=== PATIENT | female | born 1955 | race Caucasian/White ===

== ENCOUNTER 2020-12-09 06:54 | Outpatient (REF) | payer MEDICARE, SELFPAY ==
[2020-12-09 07:30] LABS: MANUAL DIFF FLAG NO
[2020-12-09 07:53] LABS: Glucose Urine UA NEG (NEG); Leukocyte Esterase Urine NEG (NEG); Nitrite Urine NEG (NEG); Urine Blood TRACE (NEG); Urine Ketones NEG (NEG); Urine Protein NEG (NEG-TRACE)
[2020-12-09 07:54] LABS: Appearance Urine CLEAR; Color Urine YELLOW
[2020-12-09 07:56] LABS: Mucus Urine 1+ /LPF; RBC Urine 0-2 /HPF (0); Renal Epithelial Cells Urine 1+ /LPF; Squamous Epithelial Cell Urine 1+ /LPF; WBC Urine 0-2 /HPF (0-4)
[2020-12-09 07:56] LABS: Basophils Absolute Auto 0.1 X10*3/uL (0.0-0.2); Basophils Percent Auto 1.2 % (0-2); Eosinophils Absolute Auto 0.1 X10*3/uL (0.0-0.4); Eosinophils Percent Auto 1.6 % (0-4); Hematocrit 43.6 % (37-47); Hemoglobin 14.4 g/dl (12.0-16.0); Imm Gran Abs Auto 0.01 X10*3/uL (0.00-0.03); Imm Gran Pct Auto 0.2 % (0.0-0.4); Lymphocytes Absolute Auto 1.5 X10*3/uL (1.2-4.9); Lymphocytes Percent Auto 35.3 % (20-40); Mean Corpuscular Hemoglobin 29.4 pg (27.0-33.0); Mean Platelet Volume 9.4 fL (9.4-12.3); Monocytes Absolute Auto 0.5 X10*3/uL (0.1-1.2); Neutrophils Absolute Auto 2.2 X10*3/uL (2.0-8.3); Neutrophils Percent Auto 49.7 % (45-73); Platelet Count 367 X10*3/uL (160-400); Red Cell Distribution Width 12.5 % (11.0-16.0); White Blood Count 4.3 X10*3/uL (4.8-10.8)
[2020-12-09 08:46] LABS: Alanine Aminotransferase 16 U/L (0-31); Albumin Level 4.6 g/dL (3.5-5.0); Alkaline Phosphatase 94 U/L (39-117); Anion Gap 15 (12-20); Aspartate Amino Transferase 23 U/L (5-31); Bilirubin Total 0.7 mg/dL (0.0-1.0); Blood Urea Nitrogen 9 mg/dL (9-16); Calcium 9.8 mg/dL (8.4-10.2); Carbon Dioxide 25 mmol/L (22-29); Chloride 107 mmol/L (96-108); Cholesterol 247 mg/dL; Estimated Glomerular Filt Rate > 60; Glucose Fasting 100 mg/dL (60-99); HDL Cholesterol 74 mg/dL; LDL Cholesterol Calculated 150 mg/dl; Potassium 5.4 mmol/L (3.3-5.1); Sodium 142 mmol/L (135-145); Total Protein 7.7 g/dL (6.5-8.0); Triglycerides 119 mg/dL
[2020-12-09 08:51] LABS: Thyroid Stimulating Hormone 2.63 uIU/mL (0.32-4.0); Vitamin D 25-OH Total 25.7 ng/mL (>30)
== END 2020-12-09 06:55 | disposition home or self-care (01) ==
LOC: HO.LAB 06:54
PROVIDERS: PCP Internal Medicine; Visit Provider Internal Medicine
DX: Z00.00 Encounter for general adult medical examination without abnormal findings (principal); E78.5 Hyperlipidemia, unspecified; E03.9 Hypothyroidism, unspecified; M81.0 Age-related osteoporosis without current pathological fracture
CPT/HCPCS: 36415; 80053; 80061; 81001; 82306; 84443; 85025

== ENCOUNTER 2020-12-12 12:54 | Outpatient (REF) | payer MEDICARE, SELFPAY ==
[2020-12-12 14:29] LABS: Anion Gap 14 (12-20); Blood Urea Nitrogen 13 mg/dL (9-16); Calcium 10.3 mg/dL (8.4-10.2); Carbon Dioxide 27 mmol/L (22-29); Chloride 104 mmol/L (96-108); Estimated Glomerular Filt Rate > 60; Glucose Random 108 mg/dL (60-115); Potassium 5.2 mmol/L (3.3-5.1); Sodium 140 mmol/L (135-145)
== END 2020-12-12 12:55 | disposition home or self-care (01) ==
LOC: HO.HMGCLDS 12:54
PROVIDERS: PCP Internal Medicine; Visit Provider Internal Medicine
DX: E87.5 Hyperkalemia (principal)
CPT/HCPCS: 36415; 80048

== ENCOUNTER 2021-02-13 07:07 | Outpatient (REF) | payer MEDICARE, SELFPAY ==
[2021-02-13 11:17] LABS: MANUAL DIFF FLAG NO
[2021-02-13 11:17] LABS: Glucose Urine UA NEG (NEG); Leukocyte Esterase Urine NEG (NEG); Nitrite Urine NEG (NEG); PH 5.5 (5.0-8.0); Specific Gravity - Urine 1.025 (1.005-1.025); Urine Blood 1+ (NEG); Urine Ketones NEG (NEG); Urine Protein NEG (NEG-TRACE)
[2021-02-13 11:19] LABS: Appearance Urine HAZY; Color Urine YELLOW
[2021-02-13 11:26] LABS: Squamous Epithelial Cell Urine TRACE /LPF; WBC Urine 0-2 /HPF (0-4)
[2021-02-13 12:06] LABS: Eosinophils Absolute Auto 0.1 X10*3/uL (0.0-0.4); Eosinophils Percent Auto 1.5 % (0-4); Hemoglobin 13.6 g/dl (12.0-16.0); Imm Gran Abs Auto 0.01 X10*3/uL (0.00-0.03); Imm Gran Pct Auto 0.3 % (0.0-0.4); Lymphocytes Absolute Auto 1.5 X10*3/uL (1.2-4.9); Lymphocytes Percent Auto 37.3 % (20-40); Mean Corpuscular HGB Conc 33.2 g/dl (31.0-35.0); Mean Corpuscular Hemoglobin 29.8 pg (27.0-33.0); Mean Corpuscular Volume 89.9 fL (80-98); Mean Platelet Volume 9.9 fL (9.4-12.3); Monocytes Absolute Auto 0.5 X10*3/uL (0.1-1.2); Monocytes Percent Auto 13.6 % (2-11); Neutrophils Absolute Auto 1.8 X10*3/uL (2.0-8.3); Neutrophils Percent Auto 46.3 % (45-73); Platelet Count 326 X10*3/uL (160-400); Red Blood Count 4.56 X10*6/uL (4.20-5.50); Red Cell Distribution Width 12.7 % (11.0-16.0); White Blood Count 3.9 X10*3/uL (4.8-10.8)
[2021-02-13 12:29] LABS: Thyroid Stimulating Hormone 0.97 uIU/mL (0.32-4.0); Vitamin D 25-OH Total 28.8 ng/mL (>30)
[2021-02-13 12:33] LABS: Alanine Aminotransferase 16 U/L (0-31); Albumin Level 4.4 g/dL (3.5-5.0); Alkaline Phosphatase 90 U/L (39-117); Anion Gap 13 (12-20); Aspartate Amino Transferase 20 U/L (5-31); Bilirubin Total 0.6 mg/dL (0.0-1.0); Blood Urea Nitrogen 14 mg/dL (9-16); Calcium 9.8 mg/dL (8.4-10.2); Carbon Dioxide 26 mmol/L (22-29); Chloride 109 mmol/L (96-108); Cholesterol 225 mg/dL; Estimated Glomerular Filt Rate > 60; Glucose Fasting 94 mg/dL (60-99); HDL Cholesterol 65 mg/dL; LDL Cholesterol Calculated 143 mg/dl; Potassium 5.1 mmol/L (3.3-5.1); Sodium 143 mmol/L (135-145); Total Protein 7.4 g/dL (6.5-8.0); Triglycerides 88 mg/dL
== END 2021-02-13 07:08 | disposition home or self-care (01) ==
LOC: HO.HMGCLDS 07:07
PROVIDERS: PCP Internal Medicine; Visit Provider Internal Medicine
DX: Z00.00 Encounter for general adult medical examination without abnormal findings (principal); E78.5 Hyperlipidemia, unspecified; E03.9 Hypothyroidism, unspecified; M81.0 Age-related osteoporosis without current pathological fracture
CPT/HCPCS: 36415; 80053; 80061; 81001; 82306; 84443; 85025

== ENCOUNTER 2021-03-19 07:13 | Outpatient (REF) | payer MEDICARE, SELFPAY ==
--- NOTE | ~2021-03-19 | MM_ITS ---
EXAMINATION: MM SCREENING DIGITAL BREAST TOMOSYNTHESIS, BILATERAL CLINICAL INFORMATION: Screening. Asymptomatic. The lifetime risk of breast cancer based on the Tyrer-Cuzick Model is 4%. COMPARISON: Mammography: 11/13/2019, 11/07/2018, 11/03/2017, 11/02/2016, 10/28/2015, 10/22/2014, 10/17/2013 TECHNIQUE: Digital breast tomosynthesis is performed in both the craniocaudal and mediolateral oblique views along with computer-aided detection (CAD). Synthesized 2D images are generated from the tomosynthesis. FINDINGS: The breasts are heterogeneously dense, which may obscure small masses (ACR BI-RADS breast composition Category c). The right breast appears similar to prior studies. There is no developing density or interval mass or adnexal abnormalities. There are scattered bilateral benign round and vascular calcifications and many are dermal calcifications again noted. The axilla and skin contours are unremarkable. Left MLO view has asymmetric density posterior upper quadrant, 6.8 cm from nipple. This may represent shifting fibroglandular densities related to positioning and summation artifact. Patient will be recalled for additional imaging. MM/MM tomosynthesis screening BI IMPRESSION: 1. Left: Asymmetric density posterior upper breast possibly summation artifact. 2. Right: No mammographic evidence of malignancy. ASSESSMENT: BI-RADS 0: Incomplete - Need Additional Imaging Evaluation RECOMMENDATION: 1. Additional views of the left breast (3-D spot MLO, 3-D ML, 3-D exaggerated CC). 2. Targeted ultrasound if warranted after review of the additional views. 3. Radiology department staff will contact the patient for additional imaging. This patient's information was entered into a reminder system with a target due date for their next mammogram.
--- NOTE | ~2021-03-19 | MM_ITS ---
EXAMINATION: BONE DENSITOMETRY CLINICAL INDICATION: Osteoporosis. COMPARISON: Previous BD dated 08/30/2018 and baseline BD dated 12/04/2011. TECHNIQUE: Using a [employer] DXA System (software version: 13.1) manufactured by [employer], dual-energy x-ray absorptiometry was performed of the lumbar spine and left hip. The images are of good technical quality. Summary results are attached. FINDINGS: AP SPINE L1-L4: Current: BMD 0.871 g/cm2, Z-score -0.9, T-score -2.6, osteoporosis, 0.6% increase from previous, 9.4% decrease from baseline (<5% change is not significant). Prior: BMD 0.866 g/cm2. Baseline: BMD 0.961 g/cm2. LEFT FEMUR, NECK: Current: BMD 0.683 g/cm2, Z-score -1.0, T-score -2.6, osteoporosis. Prior: BMD 0.657 g/cm2. Baseline: BMD 0.695 g/cm2. LEFT FEMUR, TOTAL: Current: BMD 0.715 g/cm2, Z-score -1.0, T-score -2.3, osteopenia, 1.4% increase from previous, 6.0% decrease from baseline (<5% change is not significant). Prior: BMD 0.705 g/cm2. Baseline: BMD 0.761 g/cm2. IDENTIFIED RISK FACTORS: Osteoporosis, menopause. HISTORY OF FRACTURE: None listed. MEDICATIONS: Vitamin D. MM/XR DEXA axial skeleton IMPRESSION: 1. DIAGNOSIS: Osteoporosis based on the lowest T-score value of -2.6 in the lumbar spine and femoral neck applying World Health Organization criteria. 2. 10-YEAR FRACTURE RISK PREDICTION, FRAX: Major osteoporotic fracture (clinical spine, forearm, hip or shoulder) 14.3%. Hip fracture 3.3%. 3. Treatment Recommendations: NOF guidelines recommend consideration for treatment in postmenopausal women and men age 50 and older presenting with the following: -A hip or vertebral (clinical or morphometric) fracture. -T-score less than or equal to -2.5 at the femoral neck or spine after appropriate evaluation to exclude secondary causes. -Low bone mass at the hip or spine and a 10-year fracture probability by FRAX of greater than or equal to 3% for hip fracture or greater than or equal to 20% for major osteoporotic fracture based on the [place] adapted WHO algorithm. 4. Other Recommendations: All treatment decisions require clinical judgment and consideration of individual patient factors, including patient preferences, comorbidities, previous drug use, risk factors not captured in the FRAX model (e.g. frailty, falls, vitamin D deficiency, increased bone turnover, interval significant decline in bone density) and possible under or overestimation of fracture risk by FRAX. Additional medical evaluation for secondary cause of low bone mineral density may be appropriate. FUTURE SCAN RECOMMENDATION: People with diagnosed cases of osteoporosis or at high risk for fracture should have regular bone mineral density tests. For patients eligible for Medicare, routine testing is allowed once every 2 years. The testing frequency can be increased to one year for patients who have rapidly progressing disease, those who are receiving or discontinuing medical therapy to restore bone mass, or have additional risk factors.
== END 2021-03-19 07:14 | disposition home or self-care (01) ==
LOC: HO.MAMMO 07:13
PROVIDERS: Visit Provider Internal Medicine
DX: M81.0 Age-related osteoporosis without current pathological fracture (principal); Z78.0 Asymptomatic menopausal state; Z12.31 Encounter for screening mammogram for malignant neoplasm of breast
CPT/HCPCS: 77063; 77067; 77080

== ENCOUNTER 2021-03-25 09:45 | Outpatient (REF) | payer MEDICARE, SELFPAY ==
--- NOTE | ~2021-03-25 | MM_ITS ---
EXAMINATION: MM DIAGNOSTIC DIGITAL BREAST TOMOSYNTHESIS, LEFT CLINICAL INFORMATION: Recall from screening for asymmetric density likely summation artifact upper left breast on MLO view. TC score 4%. COMPARISON: Mammography: 03/19/2021, 11/13/2019, 11/07/2018 TECHNIQUE: Digital breast tomosynthesis is performed. 2D images are generated from the tomosynthesis. The following views are obtained: Spot MLO, standard ML, exaggerated CC. FINDINGS: The breasts are heterogeneously dense, which may obscure small masses (ACR BI-RADS breast composition Category c). Additional views show no persistent asymmetric density. There is no mass or architectural abnormality. Parenchymal pattern is similar to prior studies. Results are discussed with the patient at time of visit. MM/MM tomosynthesis added views L IMPRESSION: Additional views show no persistent asymmetric density. ASSESSMENT: BI-RADS 1: Negative RECOMMENDATION: Routine annual mammography screening. This patient's information was entered into a reminder system with a target due date for their next mammogram.
== END 2021-03-25 09:46 | disposition home or self-care (01) ==
LOC: HO.MAMMO 09:45
PROVIDERS: Visit Provider Internal Medicine
DX: N64.89 Other specified disorders of breast (principal)
CPT/HCPCS: 77061; 77065

== ENCOUNTER 2021-07-04 06:55 | Outpatient (REF) | payer MEDICARE, SELFPAY ==
[2021-07-04 12:16] LABS: Alanine Aminotransferase 16 U/L (0-31); Albumin Level 4.6 g/dL (3.5-5.0); Alkaline Phosphatase 83 U/L (39-117); Anion Gap 16 (12-20); Aspartate Amino Transferase 27 U/L (5-31); Bilirubin Total 0.9 mg/dL (0.0-1.0); Blood Urea Nitrogen 15 mg/dL (9-16); Calcium 9.9 mg/dL (8.4-10.2); Carbon Dioxide 23 mmol/L (22-29); Chloride 105 mmol/L (96-108); Cholesterol 250 mg/dL; Estimated Glomerular Filt Rate 60; Glucose Fasting 89 mg/dL (60-99); HDL Cholesterol 74 mg/dL; LDL Cholesterol Calculated 163 mg/dl; Potassium 4.5 mmol/L (3.3-5.1); Sodium 139 mmol/L (135-145); Total Protein 7.6 g/dL (6.5-8.0); Triglycerides 67 mg/dL
== END 2021-07-04 06:56 | disposition home or self-care (01) ==
LOC: HO.HMGCLDS 06:55
PROVIDERS: PCP Internal Medicine; Visit Provider Internal Medicine
DX: E03.9 Hypothyroidism, unspecified (principal); E78.00 Pure hypercholesterolemia, unspecified; R03.0 Elevated blood-pressure reading, without diagnosis of hypertension
CPT/HCPCS: 36415; 80053; 80061; 84443

== ENCOUNTER 2021-09-05 06:47 | Outpatient (REF) | payer MEDICARE, SELFPAY ==
[2021-09-05 12:14] LABS: Alanine Aminotransferase 15 U/L (0-31); Albumin Level 4.5 g/dL (3.5-5.0); Alkaline Phosphatase 79 U/L (39-117); Anion Gap 15 (12-20); Aspartate Amino Transferase 22 U/L (5-31); Bilirubin Total 0.6 mg/dL (0.0-1.0); Blood Urea Nitrogen 13 mg/dL (9-16); Calcium 9.8 mg/dL (8.4-10.2); Carbon Dioxide 23 mmol/L (22-29); Chloride 108 mmol/L (96-108); Cholesterol 178 mg/dL; Estimated Glomerular Filt Rate > 60; Glucose Fasting 91 mg/dL (60-99); HDL Cholesterol 68 mg/dL; LDL Cholesterol Calculated 96 mg/dl; Sodium 141 mmol/L (135-145); Total Protein 7.6 g/dL (6.5-8.0); Triglycerides 70 mg/dL
[2021-09-06 07:50] LABS: SARS COV2 IgG Negative (Negative)
== END 2021-09-05 06:48 | disposition home or self-care (01) ==
LOC: HO.HMGCLDS 06:47
PROVIDERS: PCP Internal Medicine; Visit Provider Internal Medicine
DX: Z00.00 Encounter for general adult medical examination without abnormal findings (principal); Z20.822 Contact with and (suspected) exposure to COVID-19; E78.00 Pure hypercholesterolemia, unspecified
CPT/HCPCS: 36415; 80053; 80061; 86769

== ENCOUNTER 2021-10-27 09:09 | Outpatient (REF) | payer MEDICARE, SELFPAY ==
[2021-10-27 12:15] LABS: Alanine Aminotransferase 15 U/L (0-31); Albumin Level 4.4 g/dL (3.5-5.0); Alkaline Phosphatase 79 U/L (39-117); Anion Gap 14 (12-20); Aspartate Amino Transferase 21 U/L (5-31); Bilirubin Total 0.3 mg/dL (0.0-1.0); Blood Urea Nitrogen 12 mg/dL (9-16); Calcium 10.2 mg/dL (8.4-10.2); Carbon Dioxide 25 mmol/L (22-29); Chloride 107 mmol/L (96-108); Cholesterol 196 mg/dL; Estimated Glomerular Filt Rate > 60; Glucose Fasting 87 mg/dL (60-99); HDL Cholesterol 63 mg/dL; LDL Cholesterol Calculated 111 mg/dl; Potassium 4.5 mmol/L (3.3-5.1); Sodium 141 mmol/L (135-145); Total Protein 7.6 g/dL (6.5-8.0); Triglycerides 114 mg/dL
[2021-10-27 12:36] LABS: TSH reflex Free T4 0.58 uIU/mL (0.32-4.0)
== END 2021-10-27 09:10 | disposition home or self-care (01) ==
LOC: HO.HMGCLDS 09:09
PROVIDERS: PCP Internal Medicine; Visit Provider Internal Medicine
DX: E03.9 Hypothyroidism, unspecified (principal); E78.00 Pure hypercholesterolemia, unspecified
CPT/HCPCS: 36415; 80053; 80061; 84443

== ENCOUNTER 2022-03-20 07:42 | Outpatient (REF) | payer MEDICARE, SELFPAY ==
--- NOTE | ~2022-03-20 | MM_ITS ---
EXAMINATION: MM SCREENING DIGITAL BREAST TOMOSYNTHESIS, BILATERAL CLINICAL INFORMATION: Screening. Asymptomatic. The lifetime risk of breast cancer based on the Tyrer-Cuzick Model is 5.1%. COMPARISON: Mammography: March 25, 2021 and studies dating back to September 15, 2012 TECHNIQUE: Digital breast tomosynthesis is performed in both the craniocaudal and mediolateral oblique views along with computer-aided detection (CAD). Synthesized 2D images are generated from the tomosynthesis. FINDINGS: The breasts are heterogeneously dense, which may obscure small masses (ACR BI-RADS breast composition Category c). There are no significant masses, abnormal calcifications, or other abnormalities. MM/MM tomosynthesis screening BI IMPRESSION: There are no significant changes from prior study. ASSESSMENT: BI-RADS 1: Negative RECOMMENDATION: Routine annual mammography screening. This patient's information was entered into a reminder system with a target due date for their next mammogram.
== END 2022-03-20 07:43 | disposition home or self-care (01) ==
LOC: HO.MAMMO 07:42
PROVIDERS: PCP Internal Medicine; Visit Provider Internal Medicine
DX: Z12.31 Encounter for screening mammogram for malignant neoplasm of breast (principal)
CPT/HCPCS: 77063; 77067

== ENCOUNTER 2022-06-19 07:03 | Outpatient (REF) | payer MEDICARE, SELFPAY ==
[2022-06-19 11:34] LABS: Hematocrit 41.8 % (37.0-47.0); Hemoglobin 13.7 g/dl (12.0-16.0); Mean Corpuscular HGB Conc 32.8 g/dl (31.0-35.0); Mean Corpuscular Volume 88.6 fL (80.0-98.0); Mean Platelet Volume 9.7 fL (9.4-12.3); Platelet Count 317 X10*3/uL (160-400); Red Blood Count 4.72 X10*6/uL (4.20-5.50); Red Cell Distribution Width 12.5 % (11.0-16.0); White Blood Count 3.5 X10*3/uL (4.8-10.8)
[2022-06-19 12:23] LABS: TSH reflex Free T4 0.64 uIU/mL (0.32-4.0); Vitamin D 25-OH Total 46.8 ng/mL (>30)
[2022-06-19 12:26] LABS: Alanine Aminotransferase 18 U/L (0-31); Albumin Level 4.3 g/dL (3.5-5.0); Alkaline Phosphatase 76 U/L (39-117); Anion Gap 18 (12-20); Aspartate Amino Transferase 25 U/L (5-31); Bilirubin Total 0.6 mg/dL (0.0-1.0); Blood Urea Nitrogen 14 mg/dL (9-16); Calcium 9.8 mg/dL (8.4-10.2); Carbon Dioxide 23 mmol/L (22-29); Chloride 107 mmol/L (96-108); Cholesterol 203 mg/dL; Estimated Glomerular Filt Rate 59; Glucose Fasting 93 mg/dL (60-99); HDL Cholesterol 72 mg/dL; LDL Cholesterol Calculated 116 mg/dl; Potassium 5.5 mmol/L (3.3-5.1); Sodium 142 mmol/L (135-145); Total Protein 7.4 g/dL (6.5-8.0); Triglycerides 78 mg/dL
== END 2022-06-19 07:04 | disposition home or self-care (01) ==
LOC: HO.HMGCLDS 07:03
PROVIDERS: PCP Internal Medicine; Visit Provider Internal Medicine
DX: E03.9 Hypothyroidism, unspecified (principal); E55.9 Vitamin D deficiency, unspecified; E78.00 Pure hypercholesterolemia, unspecified
CPT/HCPCS: 36415; 80053; 80061; 82306; 84443; 85027

== ENCOUNTER 2022-06-24 08:52 | Outpatient (REF) | payer MEDICARE, SELFPAY ==
[2022-06-24 12:00] LABS: Anion Gap 16 (12-20); Blood Urea Nitrogen 15 mg/dL (9-16); Calcium 10.1 mg/dL (8.4-10.2); Carbon Dioxide 25 mmol/L (22-29); Chloride 105 mmol/L (96-108); Estimated Glomerular Filt Rate > 60; Glucose Random 107 mg/dL (60-115); Potassium 5.2 mmol/L (3.3-5.1); Sodium 141 mmol/L (135-145)
== END 2022-06-24 08:53 | disposition home or self-care (01) ==
LOC: HO.HMGCLDS 08:52
PROVIDERS: PCP Internal Medicine; Visit Provider Internal Medicine
DX: E87.5 Hyperkalemia (principal)
CPT/HCPCS: 36415; 80048

== ENCOUNTER 2023-03-26 07:23 | Outpatient (REF) | payer MEDICARE, SELFPAY ==
--- NOTE | ~2023-03-26 | MM_ITS ---
EXAMINATION: MM SCREENING DIGITAL BREAST TOMOSYNTHESIS, BILATERAL CLINICAL INFORMATION: Screening. Asymptomatic. The lifetime risk of breast cancer based on the Tyrer-Cuzick Model is 4%. COMPARISON: Mammography: 04/06/2022, 03/25/2021, 03/19/2021, 11/13/2019 TECHNIQUE: Digital breast tomosynthesis is performed in both the craniocaudal and mediolateral oblique views along with computer-aided detection (CAD). Synthesized 2D images are generated from the tomosynthesis. FINDINGS: The breasts are heterogeneously dense, which may obscure small masses (ACR BI-RADS breast composition Category c). There are no significant masses, abnormal calcifications, or other abnormalities. No architectural abnormality or developing density or significant change from prior studies. The axilla are unremarkable. There are some dermal lesions overlying the posterior lower outer right breast. MM/MM tomosynthesis screening BI IMPRESSION: No mammographic evidence of malignancy. ASSESSMENT: BI-RADS 2: Benign RECOMMENDATION: Routine annual mammography screening. This patient's information was entered into a reminder system with a target due date for their next mammogram.
== END 2023-03-26 07:24 | disposition home or self-care (01) ==
LOC: HO.MAMMO 07:23
PROVIDERS: PCP Internal Medicine; Visit Provider Internal Medicine
DX: Z12.31 Encounter for screening mammogram for malignant neoplasm of breast (principal)
CPT/HCPCS: 77063; 77067

== ENCOUNTER 2023-05-20 06:51 | Outpatient (REF) | payer MEDICARE, SELFPAY ==
[2023-05-20 07:00] LABS: MANUAL DIFF FLAG NO
[2023-05-20 07:12] LABS: Basophils Percent Auto 1.1 % (0-2); Eosinophils Absolute Auto 0.1 X10*3/uL (0.0-0.4); Eosinophils Percent Auto 2.2 % (0-4); Hematocrit 42.1 % (37.0-47.0); Hemoglobin 13.8 g/dl (12.0-16.0); Imm Gran Abs Auto 0.01 X10*3/uL (0.00-0.03); Imm Gran Pct Auto 0.3 % (0.0-0.4); Lymphocytes Absolute Auto 1.4 X10*3/uL (1.2-4.9); Lymphocytes Percent Auto 36.6 % (20-40); Mean Corpuscular HGB Conc 32.8 g/dl (31.0-35.0); Mean Corpuscular Hemoglobin 29.2 pg (27.0-33.0); Mean Corpuscular Volume 89.2 fL (80.0-98.0); Monocytes Absolute Auto 0.5 X10*3/uL (0.1-1.2); Neutrophils Absolute Auto 1.7 x10*3/uL (2.0-8.3); Neutrophils Percent Auto 45.8 % (45-73); Platelet Count 312 X10*3/uL (160-400); Red Blood Count 4.72 X10*6/uL (4.20-5.50); Red Cell Distribution Width 12.4 % (11.0-16.0); White Blood Count 3.7 X10*3/uL (4.8-10.8)
[2023-05-20 08:07] LABS: Alanine Aminotransferase 15 U/L (0-31); Albumin Level 4.3 g/dL (3.5-5.0); Alkaline Phosphatase 78 U/L (39-117); Anion Gap 16 (12-20); Aspartate Amino Transferase 22 U/L (5-31); Bilirubin Total 0.6 mg/dL (0.0-1.0); Blood Urea Nitrogen 11 mg/dL (9-16); Calcium 10.3 mg/dL (8.4-10.2); Carbon Dioxide 24 mmol/L (22-29); Chloride 109 mmol/L (96-108); Cholesterol 196 mg/dL; Estimated Glomerular Filt Rate > 60; Glucose Fasting 95 mg/dL (60-99); HDL Cholesterol 77 mg/dL; LDL Cholesterol Calculated 107 mg/dl; Potassium 5.3 mmol/L (3.3-5.1); Sodium 144 mmol/L (135-145); Total Protein 7.6 g/dL (6.5-8.0); Triglycerides 63 mg/dL
[2023-05-20 08:26] LABS: TSH reflex Free T4 0.52 uIU/mL (0.32-4.0); Vitamin D 25-OH Total 70.9 ng/mL (>30)
== END 2023-05-20 06:52 | disposition home or self-care (01) ==
LOC: HO.LAB 06:51
PROVIDERS: PCP Nurse Practitioner Family; Visit Provider Internal Medicine
DX: E03.9 Hypothyroidism, unspecified (principal); E55.9 Vitamin D deficiency, unspecified; E78.00 Pure hypercholesterolemia, unspecified
CPT/HCPCS: 36415; 80053; 80061; 82306; 84443; 85025

== ENCOUNTER 2023-05-24 15:19 | Outpatient (REF) | payer MEDICARE, SELFPAY ==
[2023-05-24 16:53] LABS: Anion Gap 12 (12-20); Carbon Dioxide 27 mmol/L (22-29); Chloride 103 mmol/L (96-108); Potassium 4.3 mmol/L (3.3-5.1); Sodium 138 mmol/L (135-145)
== END 2023-05-24 15:20 | disposition home or self-care (01) ==
LOC: HO.LAB 15:19
PROVIDERS: PCP Nurse Practitioner Family; Visit Provider Nurse Practitioner Family
DX: E87.5 Hyperkalemia (principal)
CPT/HCPCS: 36415; 80051

== ENCOUNTER 2023-05-26 14:35 | Outpatient (AMB) | payer MEDICARE, SELFPAY ==
[2023-05-26 15:08] VITALS: BP 162/80; PULSE 92; O2SAT 100; BMI 24.2
--- NOTE | 2023-05-26 15:08 | A.OFFPC_ITS ---
Vital Signs 05/26/23 15:08 05/26/23 15:53 Height 5 ft 2 in Weight 132 lb 6 oz BMI 24.2 BP 162/80 H 140/78 H Blood Pressure Location Lt brachial Lt brachial Position Sitting Sitting Pulse 92 Pulse Source Pulse Oximeter Pulse Oximetry (%) 100 Oxygen Delivery Method Room Air Intake Visit Reasons: Establish care, change from Dr Fernandez Allergies iron Allergy (Unknown, Verified 05/26/23 15:13) vomiting penicillin V Allergy (Unknown, Verified 05/26/23 15:13) rash Penicillins [PCN] Allergy (Unknown, Verified 05/26/23 15:13) HIVES alendronate sodium [Fosamax] Adverse Reaction (Unknown, Verified 05/26/23 15:13) body pains Medication List - Last Reconciled 05/26/23 by RICKIE Rogers apple cider vinegar mg PO buspirone 5 mg PO BID 30 days cholecalciferol (vitamin D3) 50 mcg PO DAILY levothyroxine 75 mcg PO DAILY pravastatin 20 mg PO DAILY Tobacco use date assessed: 05/26/23 Fall risk assessment: No Falls in past year Last assessed Fall Risk: 05/26/23 Dental Screening Dental Screen Date: 05/26/23 Did you have a dental visit in the last 12 months?: Yes Did you have a dental problem in the last 6 months where you did not have access to dental care?: No Was dental information given to patient?: Patient has dentist HPI Establish care, change from Dr Fernandez HPI Details transfer from another provider/PE. Anxiety: depends on the day, though is willing to try buspirone. Will start a low dose. Pt will check her BP at home, knows to call with increased readings, reports White Coat Syndrome. Mammogram is up to date and so is colon screen. see recent labs [facility] Medical History (Updated 05/26/23 @ 15:48 by RICKIE Rogers) Annual physical exam Anxiety Hx of screening mammography Hypercholesterolemia Hyperkalemia Hypothyroidism Leukopenia Normal colonoscopy Normal Pap smear Osteoporosis Vitamin D deficiency White coat syndrome with high blood pressure without hypertension Surgical History H/O colonoscopy Family History Father Afib Liver cancer Mother CAD (coronary artery disease) HTN (hypertension) Skin cancer Maternal Grandfather Cancer of spine Maternal Grandmother No problems noted. Paternal Grandfather Lung cancer Paternal Grandmother History of heart attack Brother No problems noted. Daughter No problems noted. Daughter No problems noted. Social History Housing: House Alcohol intake: current Alcohol intake frequency: a few times a month Alcohol type: wine Patient Tobacco Use Status: Never used Tobacco e-Cigarette/Vaping Use: Never Used Current occupational status: retired Cognitive needs: No Hearing needs: No Vision needs: Yes Questionnaire Thrive Questionnaire Date Thrive assessed: 10/27/21 Review of Systems Const Denies chills and Denies fever(s) Eyes Denies blurry vision ENT Denies vertigo, Denies dizziness and Denies sore throat Card Denies chest pain at rest, Denies chest pain with activity, Denies diaphoresis, Denies dyspnea and Denies dyspnea on exertion Resp Denies cough, Denies dyspnea, Denies dyspnea on exertion and Denies wheezing GI Denies abdominal pain, Denies melena, Denies hematochezia, Denies constipation, Denies diarrhea and Denies loose stools Denies hematuria Musc Denies numbness and Denies tingling Skin/Breast Denies lesions Neuro Denies vertigo, Denies dizziness, Denies numbness and Denies tingling Psych Denies anxiety, Denies depression, Denies homicidal ideation, Denies suicidal ideation and Denies other (substance abuse) Aller/Immun Denies wheezing Physical exam (Primary Care) Vital Signs: Last Vital Signs Pulse 92 05/26/23 15:08 BP 140/78 H 05/26/23 15:53 Pulse Ox 100 05/26/23 15:08 Oxygen Delivery Method Room Air 05/26/23 15:08 BMI result Body Mass Index 24.2 Tobacco/Smoking Status: Tobacco use Status Tobacco use date assessed 05/26/23 05/26/23 15:18 Patient Tobacco Use Status Never used Tobacco 05/26/23 15:09 e-Cigarette/Vaping Use Never Used 05/26/23 15:09 Thrive Assessment: Date of Thrive Assessment Date Thrive assessed 10/27/21 05/26/23 15:09 Const General: cooperative Nutritional Appearance: well nourished Orientation/consciousness: patient oriented x3 HENMT Head: Yes normal to inspection, Yes normocephalic and Yes atraumatic Ears: TM normal on the right and TM normal on the left Eyes General: appearance normal, both eyes and all related structures Alignment and Position: alignment normal and position normal Neck Neck: Yes normal visual inspection and Yes no lymphadenopathy Resp Effort & Inspection: normal respiratory effort Auscultation: clear to auscultation bilaterally Cardio Rate: regular rate Rhythm: regular rhythm Heart sounds: S1 normal heart sound present, S2 normal heart sound present and no murmurs GI Palpation (GI): Soft to palpation and nontender Auscultation: normal bowel sounds Skin Rashes: no rashes Neuro General: patient oriented x3, moves all extremities, no focal motor deficits and deep tendon reflexes 2+ bilaterally Romberg Test: Negative Extrem Right lower extremity: no edema Left lower extremity: no edema Psych Affect: normal affect Attitude: cooperative Thought process: Normal thought process present Assessment and Plan Assessment & Plan (1) Osteoporosis: Comment: DEXA 08/2018 could not tolerate Alendronate, body aches Code(s): M81.0 - Age-related osteoporosis without current pathological fracture (2) White coat syndrome with high blood pressure without hypertension: Code(s): R03.0 - Elevated blood-pressure reading, without diagnosis of hypertension (3) Physical exam: Code(s): Z00.00 - Encounter for general adult medical examination without abnormal findings Orders: Orders XR DEXA axial skeleton Today M81.0 - Age-related osteoporosis without current pathological fracture Medications: New buspirone 5 mg PO BID 60 tabs 2RF 30 days Coding Level of Care Code New Pt Prev Care >65yr (37706) Diagnoses Osteoporosis M81.0 White coat syndrome with high blood pressure without hypertension R03.0 Physical exam Z00.00
[2023-05-26 15:53] VITALS: BP 140/78
== END 2023-05-26 15:56 | disposition home or self-care (01) ==
PROVIDERS: PCP Nurse Practitioner Family; Visit Provider Nurse Practitioner Family
DX: M81.0 Age-related osteoporosis without current pathological fracture (principal); R03.0 Elevated blood-pressure reading, without diagnosis of hypertension; Z00.00 Encounter for general adult medical examination without abnormal findings
CPT/HCPCS: 99387

== ENCOUNTER 2023-06-03 08:00 | Outpatient (REF) | payer MEDICARE, SELFPAY ==
--- NOTE | ~2023-06-03 | MM_ITS ---
EXAMINATION: BONE DENSITOMETRY CLINICAL INDICATION: Age-related osteoporosis without current pathological fracture. COMPARISON: Previous BD dated 03/19/2021 and baseline BD dated 12/04/2011. TECHNIQUE: Using a [employer] DXA System (software version: 13.1) manufactured by [employer], dual-energy x-ray absorptiometry was performed of the lumbar spine and left hip. The images are of good technical quality. Summary results are attached. FINDINGS: LEFT FEMUR, NECK: Current: BMD 0.565 g/cm2, Z-score -1.7, T-score -3.4, osteoporosis. Prior: BMD 0.683 g/cm2. Baseline: BMD 0.695 g/cm2. LEFT FEMUR, TOTAL: Current: BMD 0.612 g/cm2, Z-score -1.6, T-score -3.1, osteoporosis, 14.4% decrease from previous, 19.6% decrease from baseline (<5% change is not significant). Prior: BMD 0.715 g/cm2. Baseline: BMD 0.761 g/cm2. AP SPINE L1-L4: Current: BMD 0.837 g/cm2, Z-score -1.0, T-score -2.9, osteoporosis, 3.9% decrease from previous, 12.9% decrease from baseline (<5% change is not significant). Prior: BMD 0.871 g/cm2. Baseline: BMD 0.961 g/cm2. IDENTIFIED RISK FACTORS: Osteoporosis, menopause. HISTORY OF FRACTURE: None listed. MEDICATIONS: Vitamin D. MM/XR DEXA axial skeleton IMPRESSION: 1. DIAGNOSIS: Osteoporosis based on the lowest T-score value of -3.4 in the femoral neck applying World Health Organization criteria. 2. 10-YEAR FRACTURE RISK PREDICTION, FRAX: According to the guidelines, FRAX calculation should only be performed on patients in the osteopenia bone density category. Therefore, FRAX was not performed on this patient. 3. Treatment Recommendations: NOF guidelines recommend consideration for treatment in postmenopausal women and men age 50 and older presenting with the following: -A hip or vertebral (clinical or morphometric) fracture. -T-score less than or equal to -2.5 at the femoral neck or spine after appropriate evaluation to exclude secondary causes. -Low bone mass at the hip or spine and a 10-year fracture probability by FRAX of greater than or equal to 3% for hip fracture or greater than or equal to 20% for major osteoporotic fracture based on the [place] adapted WHO algorithm. 4. Other Recommendations: All treatment decisions require clinical judgment and consideration of individual patient factors, including patient preferences, comorbidities, previous drug use, risk factors not captured in the FRAX model (e.g. frailty, falls, vitamin D deficiency, increased bone turnover, interval significant decline in bone density) and possible under or overestimation of fracture risk by FRAX. Additional medical evaluation for secondary cause of low bone mineral density may be appropriate. FUTURE SCAN RECOMMENDATION: People with diagnosed cases of osteoporosis or at high risk for fracture should have regular bone mineral density tests. For patients eligible for Medicare, routine testing is allowed once every 2 years. The testing frequency can be increased to one year for patients who have rapidly progressing disease, those who are receiving or discontinuing medical therapy to restore bone mass, or have additional risk factors.
== END 2023-06-03 08:01 | disposition home or self-care (01) ==
LOC: HO.MAMMO 08:00
PROVIDERS: PCP Internal Medicine; Visit Provider Nurse Practitioner Family
DX: Z13.820 Encounter for screening for osteoporosis (principal); M81.0 Age-related osteoporosis without current pathological fracture; Z78.0 Asymptomatic menopausal state
CPT/HCPCS: 77080

== ENCOUNTER → 2023-06-03 08:15 | Outpatient (BNV) | payer MEDICARE, SELFPAY | PROVIDERS: PCP Internal Medicine; Visit Provider Radiology Diagnostic Radiology | DX: M81.0 Age-related osteoporosis without current pathological fracture (principal) | CPT/HCPCS: 77080 ==

== ENCOUNTER 2023-06-18 10:00 | Outpatient (REF) | payer MEDICARE, SELFPAY ==
[2023-06-18 11:02] LABS: MANUAL DIFF FLAG NO
[2023-06-18 11:08] LABS: Basophils Absolute Auto 0.1 X10*3/uL (0.0-0.2); Basophils Percent Auto 1.3 % (0-2); Eosinophils Absolute Auto 0.1 X10*3/uL (0.0-0.4); Eosinophils Percent Auto 1.6 % (0-4); Hematocrit 43.2 % (37.0-47.0); Hemoglobin 14.5 g/dl (12.0-16.0); Imm Gran Abs Auto 0.01 X10*3/uL (0.00-0.03); Imm Gran Pct Auto 0.3 % (0.0-0.4); Lymphocytes Absolute Auto 1.4 X10*3/uL (1.2-4.9); Lymphocytes Percent Auto 36.4 % (20-40); Mean Corpuscular HGB Conc 33.6 g/dl (31.0-35.0); Mean Corpuscular Hemoglobin 29.7 pg (27.0-33.0); Mean Corpuscular Volume 88.5 fL (80.0-98.0); Mean Platelet Volume 9.1 fL (9.4-12.3); Monocytes Absolute Auto 0.5 X10*3/uL (0.1-1.2); Monocytes Percent Auto 12.8 % (2-11); Neutrophils Absolute Auto 1.8 x10*3/uL (2.0-8.3); Neutrophils Percent Auto 47.6 % (45-73); Platelet Count 342 X10*3/uL (160-400); Red Blood Count 4.88 X10*6/uL (4.20-5.50); Red Cell Distribution Width 12.3 % (11.0-16.0); White Blood Count 3.8 X10*3/uL (4.8-10.8)
[2023-06-18 11:40] LABS: Alanine Aminotransferase 13 U/L (0-31); Albumin Level 4.5 g/dL (3.5-5.0); Alkaline Phosphatase 81 U/L (39-117); Anion Gap 17 (12-20); Aspartate Amino Transferase 22 U/L (5-31); Bilirubin Direct 0.2 mg/dL (0.0-0.5); Bilirubin Total 0.7 mg/dL (0.0-1.0); Blood Urea Nitrogen 10 mg/dL (9-16); Calcium 10.8 mg/dL (8.4-10.2); Carbon Dioxide 22 mmol/L (22-29); Chloride 106 mmol/L (96-108); Estimated Glomerular Filt Rate > 60; Glucose Random 95 mg/dL (60-115); Lipase 26 U/L (8-78); Potassium 5.4 mmol/L (3.3-5.1); Sodium 140 mmol/L (135-145)
[2023-06-18 11:51] LABS: Amylase 85 U/L (28-100)
== END 2023-06-18 10:01 | disposition home or self-care (01) ==
LOC: HO.10HDL 10:00
PROVIDERS: Visit Provider Internal Medicine
DX: K62.5 Hemorrhage of anus and rectum (principal); R19.7 Diarrhea, unspecified; R10.84 Generalized abdominal pain
CPT/HCPCS: 36415; 80053; 82150; 82248; 83690; 85025

== ENCOUNTER 2023-06-18 21:24 | Outpatient (REF) | payer MEDICARE, SELFPAY ==
[2023-06-18 23:18] LABS: Leukocytes Stool Qualitative NEGATIVE (NEGATIVE)
[2023-06-18 23:54] LABS: CDiff Gene PCR POSITIVE (Negative)
[2023-06-19 00:21] LABS: CDIFF Internal ctrl Dots and bkg OK (V); CDiff Toxin Negative (Negative)
[2023-06-19 13:50] LABS: Adenovirus F 40/41 Not Detected (Not Detect.); Astrovirus Not Detected (Not Detect.); Campylobacter Not Detected (Not Detect.); Cryptosporidium Not Detected (Not Detect.); Cyclospora cayetanensis Not Detected (Not Detect.); E. coli EAEC Not Detected (Not Detect.); E. coli EPEC Not Detected (Not Detect.); E. coli ETEC Not Detected (Not Detect.); E. coli STEC Not Detected (Not Detect.); Entamoeba histolytica Not Detected (Not Detect.); Giardia lamblia Not Detected (Not Detect.); Norovirus GI/GII Not Detected (Not Detect.); Plesiomonas shigelloides Not Detected (Not Detect.); Rotavirus A Not Detected (Not Detect.); Salmonella Not Detected (Not Detect.); Sapovirus Not Detected (Not Detect.); Shigella sp./EIEC Not Detected (Not Detect.); Vibrio Not Detected (Not Detect.); Vibrio Cholerae Not Detected (Not Detect.); Yersinia enterocolitica Not Detected (Not Detect.)
== END 2023-06-18 21:25 | disposition home or self-care (01) ==
LOC: HO.LNP 21:24
PROVIDERS: Visit Provider Internal Medicine
DX: K62.5 Hemorrhage of anus and rectum (principal); R19.7 Diarrhea, unspecified; R10.84 Generalized abdominal pain
CPT/HCPCS: 87324; 87493; 87507; 89055

== ENCOUNTER 2023-07-02 07:42 | Outpatient (REF) | payer MEDICARE, SELFPAY ==
[2023-07-02 11:54] LABS: Alanine Aminotransferase 13 U/L (0-31); Albumin Level 4.4 g/dL (3.5-5.0); Alkaline Phosphatase 74 U/L (39-117); Anion Gap 13 (12-20); Aspartate Amino Transferase 21 U/L (5-31); Bilirubin Total 0.5 mg/dL (0.0-1.0); Blood Urea Nitrogen 10 mg/dL (9-16); Carbon Dioxide 27 mmol/L (22-29); Chloride 106 mmol/L (96-108); Estimated Glomerular Filt Rate > 60; Glucose Random 89 mg/dL (60-115); Potassium 4.1 mmol/L (3.3-5.1); Sodium 142 mmol/L (135-145); Total Protein 7.7 g/dL (6.5-8.0)
[2023-07-04 23:28] LABS: Calcium, Ionized 5.5 mg/dL (4.7-5.5)
[2023-07-05 13:59] LABS: Calcium (PTHI) 9.9 mg/dL (8.6-10.4); PTHI 56 pg/mL (16-77)
== END 2023-07-02 07:43 | disposition home or self-care (01) ==
LOC: HO.HMGCLDS 07:42
PROVIDERS: PCP Nurse Practitioner Family; Visit Provider Nurse Practitioner Family
DX: E83.52 Hypercalcemia (principal)
CPT/HCPCS: 36415; 80053; 82330; 83970

== ENCOUNTER 2023-08-05 15:42 | Outpatient (REF) | payer MEDICARE, SELFPAY ==
[2023-08-05 16:45] LABS: Leukocytes Stool Qualitative NEGATIVE (NEGATIVE)
[2023-08-05 16:50] LABS: CDiff Gene PCR POSITIVE (Negative)
[2023-08-05 17:38] LABS: CDIFF Internal ctrl Dots and bkg OK (V); CDiff Toxin Positive (Negative)
== END 2023-08-05 15:43 | disposition home or self-care (01) ==
LOC: HO.LNP 15:42
PROVIDERS: Visit Provider Internal Medicine
DX: R19.7 Diarrhea, unspecified (principal); Z86.19 Personal history of other infectious and parasitic diseases
CPT/HCPCS: 87324; 87493; 89055

== ENCOUNTER 2023-10-27 07:48 | Outpatient (REF) | payer MEDICARE, SELFPAY ==
[2023-10-27 11:28] LABS: MANUAL DIFF FLAG NO
[2023-10-27 11:36] LABS: Appearance Urine Clear; Color Urine Yellow; Glucose Urine UA Negative (Negative); Leukocyte Esterase Urine Moderate (2+) (Negative); Nitrite Urine Negative (Negative); PH 7.5 (5.0-9.0); Specific Gravity - Urine 1.015 (1.005-1.025); UMIC TRIGGER UACC YES; Urine Blood Trace (Negative); Urine Ketones Negative (Negative); Urine Protein Negative (Neg-Trace)
[2023-10-27 11:40] LABS: Basophils Percent Auto 1.3 % (0-2); Eosinophils Absolute Auto 0.1 X10*3/uL (0.0-0.4); Eosinophils Percent Auto 1.6 % (0-4); Hematocrit 41.5 % (37.0-47.0); Hemoglobin 13.5 g/dl (12.0-16.0); Lymphocytes Absolute Auto 1.1 X10*3/uL (1.2-4.9); Lymphocytes Percent Auto 34.8 % (20-40); Mean Corpuscular HGB Conc 32.5 g/dl (31.0-35.0); Mean Corpuscular Hemoglobin 29.4 pg (27.0-33.0); Mean Corpuscular Volume 90.4 fL (80.0-98.0); Mean Platelet Volume 10.2 fL (9.4-12.3); Monocytes Absolute Auto 0.5 X10*3/uL (0.1-1.2); Monocytes Percent Auto 16.3 % (2-11); Neutrophils Absolute Auto 1.4 x10*3/uL (2.0-8.3); Platelet Count 311 X10*3/uL (160-400); Red Blood Count 4.59 X10*6/uL (4.20-5.50); Red Cell Distribution Width 12.8 % (11.0-16.0); White Blood Count 3.1 X10*3/uL (4.8-10.8)
[2023-10-27 12:20] LABS: Alanine Aminotransferase 20 U/L (0-31); Albumin Level 4.4 g/dL (3.5-5.0); Alkaline Phosphatase 72 U/L (39-117); Anion Gap 14 (12-20); Aspartate Amino Transferase 25 U/L (5-31); Bilirubin Total 0.6 mg/dL (0.0-1.0); Blood Urea Nitrogen 13 mg/dL (9-16); Calcium 10.1 mg/dL (8.4-10.2); Carbon Dioxide 25 mmol/L (22-29); Chloride 108 mmol/L (96-108); Cholesterol 213 mg/dL (<200); Estimated Glomerular Filt Rate > 60; Glucose Fasting 95 mg/dL (60-99); HDL Cholesterol 79 mg/dL (>40); LDL Cholesterol Calculated 117 mg/dL (<100); Potassium 4.3 mmol/L (3.3-5.1); Sodium 143 mmol/L (135-145); Total Protein 7.8 g/dL (6.5-8.0); Triglycerides 85 mg/dL (<150)
[2023-10-27 12:21] LABS: Bacteria Urine None Seen (None Seen); Hyaline Casts Urine 0-2 /LPF (0-2); RBC Urine 0-2 /HPF (0-2); Squamous Epithelial Cell Urine 0-2 /HPF (0-2); WBC Urine 0-5 /HPF (0-5)
[2023-10-30 15:18] LABS: A. Phagocytphilium DNA,RT-PCR NOT DETECTED (NOT DETECTED); Babesia Microti DNA, RT-PCR NOT DETECTED (NOT DETECTED); Borrelia Miyamotoi,DNA RT-PCR NOT DETECTED (NOT DETECTED); E.Chaffeensis DNA RT-PCR NOT DETECTED (NOT DETECTED); Lyme(Borrelia ssp)DNA RT-PCR NOT DETECTED (NOT DETECTED)
== END 2023-10-27 07:49 | disposition home or self-care (01) ==
LOC: HO.HMGCLDS 07:48
PROVIDERS: PCP Nurse Practitioner Family; Visit Provider Nurse Practitioner Family
DX: Z00.00 Encounter for general adult medical examination without abnormal findings (principal); E78.00 Pure hypercholesterolemia, unspecified; E87.5 Hyperkalemia; E55.9 Vitamin D deficiency, unspecified; R53.83 Other fatigue
CPT/HCPCS: 36415; 80053; 80061; 81001; 82306; 84443; 85025; 87468; 87469; 87478; 87484; 87798

== ENCOUNTER 2023-11-11 07:31 | Outpatient (REF) | payer MEDICARE, SELFPAY ==
[2023-11-11 12:29] LABS: Alanine Aminotransferase 15 U/L (0-31); Albumin Level 4.4 g/dL (3.5-5.0); Alkaline Phosphatase 80 U/L (39-117); Anion Gap 15 (12-20); Aspartate Amino Transferase 23 U/L (5-31); Bilirubin Total 0.5 mg/dL (0.0-1.0); Blood Urea Nitrogen 13 mg/dL (9-16); Calcium 10.1 mg/dL (8.4-10.2); Carbon Dioxide 26 mmol/L (22-29); Chloride 106 mmol/L (96-108); Estimated Glomerular Filt Rate 53; Glucose Random 92 mg/dL (60-115); Sodium 142 mmol/L (135-145); Total Protein 7.7 g/dL (6.5-8.0)
[2023-11-11 14:22] LABS: Urine Cytology See Pathology rpt
[2023-11-11 14:38] LABS: Appearance Urine Clear; Color Urine Yellow; Glucose Urine UA Negative (Negative); Leukocyte Esterase Urine Negative (Negative); Nitrite Urine Negative (Negative); PH 6.5 (5.0-9.0); Specific Gravity - Urine <= 1.005 (1.005-1.025); UMIC TRIGGER UACC YES; Urine Blood Trace (Negative); Urine Ketones Negative (Negative); Urine Protein Negative (Neg-Trace)
[2023-11-11 14:42] LABS: Bacteria Urine None Seen (None Seen); Hyaline Casts Urine 0-2 /LPF (0-2); RBC Urine 0-2 /HPF (0-2); Squamous Epithelial Cell Urine 0-2 /HPF (0-2); WBC Urine 0-5 /HPF (0-5)
== END 2023-11-11 07:32 | disposition home or self-care (01) ==
LOC: HO.HMGCLDS 07:31
PROVIDERS: PCP Nurse Practitioner Family; Visit Provider Nurse Practitioner Family
DX: R31.29 Other microscopic hematuria (principal)
CPT/HCPCS: 36415; 80053; 81001; 87086; 88112

== ENCOUNTER → 2023-11-16 08:06 | Outpatient (BNV) | payer MEDICARE, SELFPAY | PROVIDERS: PCP Nurse Practitioner Family; Visit Provider Internal Medicine Medical Oncology | DX: D72.819 Decreased white blood cell count, unspecified (principal) | CPT/HCPCS: 99213; 99214 ==

== ENCOUNTER 2023-11-24 12:45 | Outpatient (REF) | payer MEDICARE, SELFPAY ==
[2023-11-24 15:59] LABS: Urine Cytology See Pathology rpt
[2023-11-24 16:04] LABS: Appearance Urine Clear; Color Urine Yellow; Glucose Urine UA Negative (Negative); Leukocyte Esterase Urine Negative (Negative); Nitrite Urine Negative (Negative); PH 7.5 (5.0-9.0); Urine Blood Negative (Negative); Urine Ketones Negative (Negative); Urine Protein Negative (Neg-Trace)
== END 2023-11-24 12:46 | disposition home or self-care (01) ==
LOC: HO.HMGCLNP 12:45
PROVIDERS: PCP Nurse Practitioner Family; Visit Provider Nurse Practitioner Family
DX: Z00.00 Encounter for general adult medical examination without abnormal findings (principal); R31.29 Other microscopic hematuria; E55.9 Vitamin D deficiency, unspecified; E87.5 Hyperkalemia; E78.00 Pure hypercholesterolemia, unspecified
CPT/HCPCS: 81003; 88112

== ENCOUNTER 2023-12-02 09:17 | Outpatient (REF) | payer MEDICARE, SELFPAY ==
--- NOTE | ~2023-12-02 | CT_ITS ---
EXAMINATION: CT ABDOMEN AND PELVIS WITHOUT AND WITH CONTRAST CLINICAL INFORMATION: Microscopic hematuria. COMPARISON: None available. TECHNIQUE: Noncontrast CT of the abdomen and pelvis is performed followed by split bolus contrast-enhanced images using 85 mL Omnipaque 350 contrast.? Postcontrast imaging is performed during the combined nephrogram and excretion phase. Sagittal and coronal reformatted images were obtained on the technologist's workstation for both the precontrast and postcontrast phases. This CT examination was performed using dose optimization techniques as appropriate, variously including the following: *Automated exposure control *Adjustment of mA and/or kV according to patient size (this includes techniques or standardized protocols for targeted exams where dose is matched to indication/reason for exam; i.e. extremities or head) *Use of iterative reconstruction technique DLP: 506 mGy-cm FINDINGS: LUNG BASES: The visualized lung bases are unremarkable. LIVER, GALLBLADDER, AND BILIARY TREE: The liver is normal in size, shape, and attenuation. No focal hepatic lesion or biliary ductal dilatation is present. The gallbladder is unremarkable with no evidence of radiopaque gallstones, gallbladder wall thickening, or obvious pericholecystic inflammatory changes. PANCREAS: Unremarkable. SPLEEN: Unremarkable. ADRENAL GLANDS: Unremarkable. KIDNEYS AND URETERS: The kidneys are normal in size, shape, and attenuation. The right kidney measures 8.8 cm in greatest length and the left 9.2 cm. No hydronephrosis, hydroureter, or calculi seen. No perinephric stranding. No renal masses are seen. No abnormalities of the urinary collecting systems present. BLADDER: Unremarkable. GASTROINTESTINAL TRACT: The small and large bowel are unremarkable. The appendix is unremarkable. ABDOMINAL WALL: No significant hernia is appreciated. LYMPH NODES: Normal. VASCULAR: Calcific atherosclerotic changes are present in the aorta and iliofemoral vessels. There is no evidence of an abdominal aortic aneurysm. PELVIC VISCERA: Unremarkable. OSSEUS STRUCTURES: Degenerative changes are present in the lower thoracic spine most marked at T11-T12 and L1-L2. There is mild anterolisthesis of L4 upon L5 and retrolisthesis of L5 upon S1. CT/CT urogram IMPRESSION: A cause for the patient's microscopic hematuria has not been found.
[2023-12-02] MEDS: iohexoL 350 MG/ML 100 ML INFUS..BTL 85 ML IV (10:45)
== END 2023-12-02 09:18 | disposition home or self-care (01) ==
LOC: HO.CT 09:17
PROVIDERS: PCP Nurse Practitioner Family; Visit Provider Nurse Practitioner Family
DX: R31.29 Other microscopic hematuria (principal)
CPT/HCPCS: 74178; Q9967

== ENCOUNTER 2024-01-17 10:16 | Outpatient (AMB) | payer MEDICARE, SELFPAY ==
--- NOTE | 2024-01-17 10:42 | MHC.OFFVIS ---
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 The patient states that several weeks ago she was treated for an ear infection and was on antibiotics for a while and developed C diff. she had routine follow-up with her primary and she states she had been fasting and felt she was dehydrated and gave only a small amount of urine that was very concentrated. She denies irritative voiding symptoms. She denies nicotine use. I have reviewed her chart she had urinalysis on 10/27 23 and 11/11/2023 that noted 0-2 red cells per high-powered field. 10/27/2023 Urine had moderate white blood cells and was sent for culture which came back less than 10,000 colonies. Urine was sent for cytology on 11/11/2023 and was negative a repeat urine cytology on 11/24/2023 had atypical degenerative cells and inflammatory cells. Urinalysis 11/24/2023 and today 01/17/2024 is negative for blood. CT urogram was reviewed with the patient and within normal limits. I have discussed with Barbie at this time cystoscopy is not indicated. I will repeat urine cytology. Follow-up in 6 months to recheck urinalysis [facility] Medical History Vitamin D deficiency Hx of screening mammography White coat syndrome with high blood pressure without hypertension Normal colonoscopy Normal Pap smear Annual physical exam Leukopenia Osteoporosis Hypercholesterolemia Hypothyroidism Anxiety Hyperkalemia Surgical History H/O colonoscopy Family History Father Afib Liver cancer Mother CAD (coronary artery disease) HTN (hypertension) Skin cancer Maternal Grandfather Cancer of spine Maternal Grandmother No problems noted. Paternal Grandfather Lung cancer Paternal Grandmother History of heart attack Brother No problems noted. Daughter No problems noted. Daughter No problems noted. Social History Household Members: Spouse Housing: House Alcohol intake: current Alcohol intake frequency: a few times a month Alcohol type: wine Patient Tobacco Use Status: Never used Tobacco e-Cigarette/Vaping Use: Never Used service: No Current occupational status: retired Cognitive needs: No Hearing needs: No Vision needs: Yes Review of Systems Const All systems reviewed & are unremarkable except as noted in HPI and below Reports no additional complaints Eyes Reports no additional complaints ENT Reports no additional complaints Card Reports no additional complaints Resp Reports no additional complaints GI Reports no additional complaints Reports as per HPI Musc Reports no additional complaints Skin/Breast Reports system reviewed and no additional complaints, except as documented Neuro Reports no additional complaints Psych Reports no additional complaints Endo Reports no additional complaints Tolu/Lymph Reports no additional complaints Aller/Immun Reports no additional complaints Physical Exam Const General: cooperative, healthy appearing and no acute distress Orientation/consciousness: patient oriented x3 HEENT Head: Yes normal to inspection, Yes normocephalic and Yes atraumatic Eyes Conjunctivae: conjunctivae normal Neck Neck: Yes normal visual inspection and Yes trachea midline Chest Chest palpation & inspection: normal inspection of the chest Resp Effort & Inspection: normal respiratory effort Cardio Rate: regular rate GI Inspection: Yes normal to inspection Skin General skin exam: no rashes or lesions noted Neuro General: patient oriented x3 Extrem General: No edema Psych Appearance: grossly normal Results AMB Urinalysis, Automated UA Leukoctes 0 Diego/uL Last Edit by Destiny Baker CMA on 01/17/24 11:03 UA Nitrite Negative Last Edit by Destiny Baker CMA on 01/17/24 11:03 UA Urobilinogen 0.2 mg/dL Last Edit by Destiny Baker CMA on 01/17/24 11:03 UA Protein 0 mg/dL Last Edit by Destiny Baker CMA on 01/17/24 11:03 UA pH 7.5 Last Edit by [facility], [facility] on 01/17/24 11:03 UA Blood 0 Dk/uL Last Edit by [facility], [facility] on 01/17/24 11:03 UA Specific [place] 1.005 Last Edit by [facility], [facility] on 01/17/24 11:03 UA Ketone Negative Last Edit by [facility], [facility] on 01/17/24 11:03 UA Bilirubin 0 mg/dL Last Edit by [facility], [facility] on 01/17/24 11:03 UA Glucose 0 mg/dL Last Edit by [facility], [facility] on 01/17/24 11:03 Results Reviewed Results Reviewed: Laboratory Last Values Urine pH (Auto) 7.5 01/17/24 11:02 Specific [place] (Auto) 1.005 01/17/24 11:02 Urine Protein (Auto) 0 mg/dL 01/17/24 11:02 Glucose (UA)(Auto) 0 mg/dL 01/17/24 11:02 Urine Ketones (Auto) Negative 01/17/24 11:02 Urine Blood (Auto) 0 Dk/uL 01/17/24 11:02 Urine Nitrite (Auto) Negative 01/17/24 11:02 Urine Bilirubin (Auto) 0 mg/dL 01/17/24 11:02 Urine Urobilinogen (Auto) 0.2 mg/dL 01/17/24 11:02 Leukocyte Esterase (Auto) 0 Diego/uL 01/17/24 11:02 Date of Service: 12/02/23 CT ABDOMEN AND PELVIS WITHOUT AND WITH CONTRAST CLINICAL INFORMATION: Microscopic hematuria. COMPARISON: None available. TECHNIQUE: Noncontrast CT of the abdomen and pelvis is performed followed by split bolus contrast-enhanced images using 85 mL Omnipaque 350 contrast.? Postcontrast imaging is performed during the combined nephrogram and excretion phase. Sagittal and coronal reformatted images were obtained on the technologist's workstation for both the precontrast and postcontrast phases. This CT examination was performed using dose optimization techniques as appropriate, variously including the following: *Automated exposure control *Adjustment of mA and/or kV according to patient size (this includes techniques or standardized protocols for targeted exams where dose is matched to indication/reason for exam; i.e. extremities or head) *Use of iterative reconstruction technique DLP: 506 mGy-cm FINDINGS: LUNG BASES: The visualized lung bases are unremarkable. LIVER, GALLBLADDER, AND BILIARY TREE: The liver is normal in size, shape, and attenuation. No focal hepatic lesion or biliary ductal dilatation is present. The gallbladder is unremarkable with no evidence of radiopaque gallstones, gallbladder wall thickening, or obvious pericholecystic inflammatory changes. PANCREAS: Unremarkable. SPLEEN: Unremarkable. ADRENAL GLANDS: Unremarkable. KIDNEYS AND URETERS: The kidneys are normal in size, shape, and attenuation. The right kidney measures 8.8 cm in greatest length and the left 9.2 cm. No hydronephrosis, hydroureter, or calculi seen. No perinephric stranding. No renal masses are seen. No abnormalities of the urinary collecting systems present. BLADDER: Unremarkable. GASTROINTESTINAL TRACT: The small and large bowel are unremarkable. The appendix is unremarkable. ABDOMINAL WALL: No significant hernia is appreciated. LYMPH NODES: Normal. VASCULAR: Calcific atherosclerotic changes are present in the aorta and iliofemoral vessels. There is no evidence of an abdominal aortic aneurysm. PELVIC VISCERA: Unremarkable. OSSEUS STRUCTURES: Degenerative changes are present in the lower thoracic spine most marked at T11-T12 and L1-L2. There is mild anterolisthesis of L4 upon L5 and retrolisthesis of L5 upon S1. IMPRESSION: A cause for the patient's microscopic hematuria has not been found. Assessment & Plan Assessment & Plan (1) Abnormal urine cytology: Code(s): R82.89 - Other abnormal findings on cytological and histological examination of urine (2) Microscopic hematuria: Code(s): R31.29 - Other microscopic hematuria Plan Urinalysis 11/24/2023 and today 01/17/2024 is negative for blood. CT urogram was reviewed with the patient and within normal limits. I have discussed with Barbie at this time cystoscopy is not indicated. I will repeat urine cytology. Follow-up in 6 months to recheck urinalysis Orders: Orders Urine Cytology Today R31.29 - Other microscopic hematuria AMB Urinalysis Automated Today R33.9 - Retention of urine, unspecified Patient Instructions: The patient had an opportunity to ask questions regarding treatment plan. All questions were answered. Imaging, Laboratory studies and physical exam results were discussed and reviewed in detail. No major barriers to understanding were identified. The patient expressed understanding and agreement with the above treatment plan. The patient is aware they should contact our office by phone for worsening of their current condition or the appearance of new symptoms. Compliance is encouraged with any medications and followup testing that is ordered. It is a privilege to be allowed the opportunity to participate in the urologic care of your patient. If you have any questions or concerns regarding treatment for the above conditions please do not hesitate to contact me. The office telephone contact is [phone]. This note is constructed in part using voice recognition software. While every effort has been made to ensure accuracy station installer errors may have been included. Yours sincerely, Davian Copeland MD Coding Level of Care Code New Pt Level 3 (15624) Diagnoses Abnormal urine cytology R82.89 Microscopic hematuria R31.29
== END 2024-01-17 11:33 | disposition home or self-care (01) ==
PROVIDERS: PCP Nurse Practitioner Family; Visit Provider Urology
DX: R82.89 Other abnormal findings on cytological and histological examination of urine (principal); R31.29 Other microscopic hematuria; R33.9 Retention of urine, unspecified
CPT/HCPCS: 99203

== ENCOUNTER 2024-01-17 10:16 | Outpatient (REF) | payer MEDICARE, SELFPAY ==
[2024-01-18 09:16] LABS: Urine Cytology See Pathology rpt
== END 2024-01-17 10:17 | disposition home or self-care (01) ==
LOC: HO.LAB 10:16
PROVIDERS: PCP Nurse Practitioner Family; Visit Provider Urology
DX: R31.29 Other microscopic hematuria (principal); R82.89 Other abnormal findings on cytological and histological examination of urine; R33.9 Retention of urine, unspecified
CPT/HCPCS: 81003; 88112; 99202

== ENCOUNTER 2024-03-31 07:07 | Outpatient (REF) | payer MEDICARE, SELFPAY | END 2024-03-31 07:08 | disposition home or self-care (01) | LOC: HO.MAMMO 07:07 | PROVIDERS: PCP Nurse Practitioner Family; Visit Provider Nurse Practitioner Family | DX: Z12.31 Encounter for screening mammogram for malignant neoplasm of breast (principal) | CPT/HCPCS: 77063; 77067 ==

== ENCOUNTER → 2024-03-31 07:30 | Outpatient (BNV) | payer MEDICARE, SELFPAY | PROVIDERS: PCP Nurse Practitioner Family; Visit Provider Radiology Diagnostic Radiology | DX: Z12.31 Encounter for screening mammogram for malignant neoplasm of breast (principal) | CPT/HCPCS: 77063; 77067 ==

== ENCOUNTER 2024-04-13 14:21 | Outpatient (AMB) | payer MEDICARE, SELFPAY ==
[2024-04-13 14:32] VITALS: BP 150/80; PULSE 74; TEMP 36.6; O2SAT 98
--- NOTE | 2024-04-13 14:32 | AM.OFFWIN_ITS ---
Intake Vital Signs 04/13/24 14:32 Height 5 ft 2 in BP 150/80 H Blood Pressure Location Rt brachial Position Sitting Pulse 74 Pulse Source Pulse Oximeter Temp 97.9 F Temp Source Temporal Artery Scan Pulse Oximetry (%) 98 Intake Visit Reasons: EP ?UTI Intake Note: pt is here for possible uti Patient Tobacco Use Status: Never used Tobacco Allergies iron Allergy (Unknown, Verified 04/13/24 14:32) vomiting penicillin V Allergy (Unknown, Verified 04/13/24 14:32) rash Penicillins [PCN] Allergy (Unknown, Verified 04/13/24 14:32) HIVES alendronate sodium [Fosamax] Adverse Reaction (Unknown, Verified 04/13/24 14:32) body pains Do you need a note to return to daycare/school/sports/work: No HPI HPI Comments History of Present Illness Details 68 y/o female patient who [facility] with c/o Urinary symptoms starting yesterday. Pt has a long history of urinary Tract infections plus Hematuria, and currently sees Urology. [facility] Medical History Vitamin D deficiency Hx of screening mammography White coat syndrome with high blood pressure without hypertension Normal colonoscopy Normal Pap smear Annual physical exam Leukopenia Osteoporosis Hypercholesterolemia Hypothyroidism Anxiety Hyperkalemia Surgical History H/O colonoscopy Family History Father Afib Liver cancer Mother CAD (coronary artery disease) HTN (hypertension) Skin cancer Maternal Grandfather Cancer of spine Maternal Grandmother No problems noted. Paternal Grandfather Lung cancer Paternal Grandmother History of heart attack Brother No problems noted. Daughter No problems noted. Daughter No problems noted. Social History Household Members: Spouse Housing: House Alcohol intake: current Alcohol intake frequency: a few times a month Alcohol type: wine Patient Tobacco Use Status: Never used Tobacco e-Cigarette/Vaping Use: Never Used service: No Current occupational status: retired Cognitive needs: No Hearing needs: No Vision needs: Yes Review of Systems Const All systems reviewed & are unremarkable except as noted in HPI and below Physical Exam Vital Signs: Last Vital Signs Temp 97.9 F 04/13/24 14:32 Pulse 74 04/13/24 14:32 BP 150/80 H 04/13/24 14:32 Pulse Ox 98 04/13/24 14:32 Const General: comfortable and no acute distress Orientation/consciousness: patient oriented x3 Other: Vaginal and pelvic exam deferred. General: Yes no CVA tenderness Back/Spine/Pelvis Back: no CVA tenderness Neuro General: patient oriented x3, gait normal and moves all extremities Psych Speech and movement: Normal speech and movement present Results AMB Urinalysis, Automated UA Leukoctes 125 Diego/uL Last Edit by Rahul Garcia CMA on 04/13/24 15:1 6 UA Nitrite Negative Last Edit by Rahul Garcia CMA on 04/13/24 15:16 UA Urobilinogen 0.2 mg/dL Last Edit by Rahul Garcia CMA on 04/13/24 15 :16 UA Protein 0 mg/dL Last Edit by Rahul Garcia CMA on 04/13/24 15:16 UA pH 7.0 Last Edit by Rahul Garcia CMA on 04/13/24 15:16 UA Blood 80 Dk/uL Last Edit by Rahul Garcia CMA on 04/13/24 15:16 UA Specific [place] 1.005 Last Edit by Rahul Garcia CMA on 04/13/24 15:16 UA Ketone Negative Last Edit by Rahul Garcia CMA on 04/13/24 15:16 UA Bilirubin 0 mg/dL Last Edit by Rahul Garcia CMA on 04/13/24 15:16 UA Glucose 0 mg/dL Last Edit by Rahul Garcia CMA on 04/13/24 15:16 Results Reviewed Results Reviewed: Laboratory Last Values Urine pH (Auto) 7.0 04/13/24 14:41 Specific [place] (Auto) 1.005 04/13/24 14:41 Urine Protein (Auto) 0 mg/dL 04/13/24 14:41 Glucose (UA)(Auto) 0 mg/dL 04/13/24 14:41 Urine Ketones (Auto) Negative 04/13/24 14:41 Urine Blood (Auto) 80 Dk/uL 04/13/24 14:41 Urine Nitrite (Auto) Negative 04/13/24 14:41 Urine Bilirubin (Auto) 0 mg/dL 04/13/24 14:41 Urine Urobilinogen (Auto) 0.2 mg/dL 04/13/24 14:41 Leukocyte Esterase (Auto) 125 Diego/uL 04/13/24 14:41 Assessment & Plan Assessment & Plan (1) Cystitis: Code(s): N30.90 - Cystitis, unspecified without hematuria Plan: Will send Urine sample for C&S Pt has a F/U appointment with Urology in July Prescribed Cipro x 7 days. Hydrate well with water Orders: Orders AMB Urinalysis Automated Today Z13.9 - Encounter for screening, unspecified UA CC w/rflx Micro + Cult Today N30.90 - Cystitis, unspecified without hematuria Medications: New ciprofloxacin HCl 500 mg PO BID 14 tabs 0RF 7 days N30.90 - Cystitis, unspecified without hematuria Coding Level of Care Code Est Pt Level 3 (16094) Diagnoses Cystitis N30.90 Time Spent (min) 15
== END 2024-04-13 16:03 | disposition home or self-care (01) ==
PROVIDERS: PCP Nurse Practitioner Family; Visit Provider Nurse Practitioner Family
DX: N30.90 Cystitis, unspecified without hematuria (principal)
CPT/HCPCS: 81003; 99213

== ENCOUNTER 2024-04-13 15:15 | Outpatient (REF) | payer MEDICARE, SELFPAY ==
[2024-04-13 22:00] LABS: Appearance Urine Clear; Color Urine Yellow; Glucose Urine UA Negative (Negative); Leukocyte Esterase Urine Large (3+) (Negative); Nitrite Urine Negative (Negative); Specific Gravity - Urine <= 1.005 (1.005-1.025); UMIC TRIGGER UACC YES; Urine Blood Small (1+) (Negative); Urine Ketones Negative (Negative); Urine Protein Negative (Neg-Trace)
[2024-04-13 22:29] LABS: Bacteria Urine 2+ (None Seen); Hyaline Casts Urine 0-2 /LPF (0-2); RBC Urine 0-2 /HPF (0-2); Squamous Epithelial Cell Urine 0-2 /HPF (0-2); UACC Culture Trigger YES
== END 2024-04-13 15:16 | disposition home or self-care (01) ==
LOC: HO.LAB 15:15
PROVIDERS: Visit Provider Nurse Practitioner Family
DX: N30.90 Cystitis, unspecified without hematuria (principal)
CPT/HCPCS: 81001; 81003; 87086; 87088; 87186

== ENCOUNTER 2024-05-17 09:36 | Outpatient (AMB) | payer MEDICARE, SELFPAY ==
--- NOTE | 2024-05-17 09:37 | AM.OFFWIN_ITS ---
Intake Vital Signs 05/17/24 09:38 Height 5 ft 2 in Weight 132 lb BMI 24.1 BP 170/72 H Blood Pressure Location Lt brachial Position Sitting Pulse 82 Pulse Source Pulse Oximeter Temp 98.2 F Temp Source Oral Pulse Oximetry (%) 98 Oxygen Delivery Method Room Air Intake Visit Reasons: ?UTI Intake Note: pt is here for possible uti Patient Tobacco Use Status: Never used Tobacco Allergies iron Allergy (Unknown, Verified 05/17/24 09:37) vomiting penicillin V Allergy (Unknown, Verified 05/17/24 09:37) rash Penicillins [PCN] Allergy (Unknown, Verified 05/17/24 09:37) HIVES alendronate sodium [Fosamax] Adverse Reaction (Unknown, Verified 05/17/24 09:37) body pains Do you need a note to return to daycare/school/sports/work: No HPI HPI Comments History of Present Illness Details This is a 68-year-old female with past medical history of hyperlipidemia and hypothyroidism presenting for evaluation of urinary frequency and drinking more water over the past 2 days. Patient has no history of diabetes. Patient reports mild suprapubic pressure but denies any overt dysur ia, abdominal pain, flank pain, fevers or chills. Patient is leaving on vacation tomorrow and is concerned she may need an antibiotic for her symptoms. [facility] Medical History Vitamin D deficiency Hx of screening mammography White coat syndrome with high blood pressure without hypertension Normal colonoscopy Normal Pap smear Annual physical exam Leukopenia Osteoporosis Hypercholesterolemia Hypothyroidism Anxiety Hyperkalemia Surgical History H/O colonoscopy Family History Father Afib Liver cancer Mother CAD (coronary artery disease) HTN (hypertension) Skin cancer Maternal Grandfather Cancer of spine Maternal Grandmother No problems noted. Paternal Grandfather Lung cancer Paternal Grandmother History of heart attack Brother No problems noted. Daughter No problems noted. Daughter No problems noted. Social History Household Members: Spouse Housing: House Alcohol intake: current Alcohol intake frequency: a few times a month Alcohol type: wine Patient Tobacco Use Status: Never used Tobacco e-Cigarette/Vaping Use: Never Used service: No Current occupational status: retired Cognitive needs: No Hearing needs: No Vision needs: Yes Review of Systems Const Denies chills, Denies fatigue and Denies fever(s) Eyes Reports no additional complaints ENT Reports no additional complaints and Denies dry mouth Card Reports no additional complaints Resp Reports no additional complaints GI Reports no additional complaints Musc Reports no additional complaints Skin/Breast Reports system reviewed and no additional complaints, except as documented Neuro Reports no additional complaints Endo Reports no additional complaints and Denies fatigue Tolu/Lymph Reports no additional complaints Physical Exam Vital Signs: Last Vital Signs Temp 98.2 F 05/17/24 09:38 Pulse 82 05/17/24 09:38 BP 170/72 H 05/17/24 09:38 Pulse Ox 98 05/17/24 09:38 Oxygen Delivery Method Room Air 05/17/24 09:38 BMI result Body Mass Index 24.1 Const General: cooperative, healthy appearing, comfortable, no acute distress, well developed, alert, awake and Physically active Nutritional Appearance: average body habitus Orientation/consciousness: patient oriented x3 Limitations: no limitations GI Inspection: Yes normal to inspection Palpation (GI): Soft to palpation, nontender and no guarding Auscultation: normal bowel sounds and abnormal bowel sounds General: Yes Bimanual renal exam normal bilaterally, Yes bladder normal to inspection and Yes bladder normal to palpation Bimanual exam- vagina & uterus: bladder normal to palpation Skin General skin exam: no rashes or lesions noted Neuro General: patient oriented x3 Psych Appearance: grossly normal Mental Status: mental status grossly normal Insight: Good insight present (Psych) Judgement: Good judgement present (Psych) Results AMB Urinalysis, Automated UA Leukoctes 70 Diego/uL Last Edit by Rahul Garcia CMA on 05/17/24 09:50 UA Nitrite Negative Last Edit by Rahul Garcia CMA on 05/17/24 09:50 UA Urobilinogen 0.2 mg/dL Last Edit by Rahul Garcia CMA on 05/17/24 09 :50 UA Protein 0 mg/dL Last Edit by Rahul Garcia CMA on 05/17/24 09:50 UA pH 7.0 Last Edit by Rahul Garcia CMA on 05/17/24 09:50 UA Blood 0 Dk/uL Last Edit by Rahul Garcia CMA on 05/17/24 09:50 UA Specific [place] 1.005 Last Edit by Rahul Garcia CMA on 05/17/24 09:50 UA Ketone Negative Last Edit by Rahul Garcia CMA on 05/17/24 09:50 UA Bilirubin 0 mg/dL Last Edit by Rahul Garcia CMA on 05/17/24 09:50 UA Glucose 0 mg/dL Last Edit by Rahul Garcia CMA on 05/17/24 09:50 AMB Random Glucose (hemocue) AMB Random Glucose (hemocue) 83 mg/dL Last Edit by Steven Romero CMA on 04/19 10/19 4 10:19 Results Reviewed Results Reviewed: Laboratory Last Values Urine pH (Auto) 7.0 05/17/24 09:50 Specific [place] (Auto) 1.005 05/17/24 09:50 Urine Protein (Auto) 0 mg/dL 05/17/24 09:50 Glucose (UA)(Auto) 0 mg/dL 05/17/24 09:50 Urine Ketones (Auto) Negative 05/17/24 09:50 Urine Blood (Auto) 0 Dk/uL 05/17/24 09:50 Urine Nitrite (Auto) Negative 05/17/24 09:50 Urine Bilirubin (Auto) 0 mg/dL 05/17/24 09:50 Urine Urobilinogen (Auto) 0.2 mg/dL 05/17/24 09:50 Leukocyte Esterase (Auto) 70 Diego/uL 05/17/24 09:50 Assessment & Plan Assessment & Plan (1) Urinary frequency: Comment: Urinalysis is positive for leukocytes only, antibiotics will be prescribed but the patient will hold them until culture results are available. Random blood glucose 83mg/dL. Code(s): R35.0 - Frequency of micturition Plan: Macrobid b.i.d. x7 days only if indicated by urine culture. Patient is agreeable to this plan of care and will call for the results of the urine culture. Orders: Orders AMB Urinalysis Automated Today Albertina Mccartney, PA-C Z13.9 - Encounter for screening, unspecified Urine Culture Today Edilia Parsons PA-C R30.0 - Dysuria AMB Random Glucose (hemocue) Today Edilia Parsons PA-C Z13.9 - Encounter for screening, unspecified Medications: New nitrofurantoin monohyd/m-cryst 100 mg (Macrobid) must administer with a meal/food 100 mg PO BID 14 caps 0RF Edilia Parsons PA-C Coding Level of Care Code Est Pt Level 3 (78167) Diagnoses Urinary frequency R35.0 Time Spent (min) 20
[2024-05-17 09:38] VITALS: BP 170/72; PULSE 82; TEMP 36.8; O2SAT 98; BMI 24.1
== END 2024-05-17 12:07 | disposition home or self-care (01) ==
PROVIDERS: PCP Nurse Practitioner Family; Visit Provider Physician Assistant
DX: R35.0 Frequency of micturition (principal); R63.1 Polydipsia
CPT/HCPCS: 81003; 82948; 99213

== ENCOUNTER 2024-05-17 13:11 | Outpatient (REF) | payer MEDICARE, SELFPAY | END 2024-05-17 13:12 | disposition home or self-care (01) | LOC: HO.LNP 13:11 | PROVIDERS: Visit Provider Physician Assistant | DX: R30.0 Dysuria (principal) | CPT/HCPCS: 87086 ==

== ENCOUNTER 2024-11-23 07:33 | Outpatient (REF) | payer MEDICARE, SELFPAY ==
[2024-11-23 07:43] LABS: MANUAL DIFF FLAG NO
[2024-11-23 08:14] LABS: Basophils Absolute Auto 0.1 X10*3/uL (0.0-0.2); Basophils Percent Auto 1.2 % (0-2); Eosinophils Absolute Auto 0.2 X10*3/uL (0.0-0.4); Hematocrit 40.3 % (37.0-47.0); Hemoglobin 13.4 g/dl (12.0-16.0); Imm Gran Abs Auto 0.01 X10*3/uL (0.00-0.03); Imm Gran Pct Auto 0.2 % (0.0-0.4); Lymphocytes Absolute Auto 1.6 X10*3/uL (1.2-4.9); Lymphocytes Percent Auto 31.8 % (20-40); Mean Corpuscular HGB Conc 33.3 g/dl (31.0-35.0); Mean Corpuscular Hemoglobin 29.5 pg (27.0-33.0); Mean Corpuscular Volume 88.6 fL (80.0-98.0); Mean Platelet Volume 9.3 fL (9.4-12.3); Monocytes Absolute Auto 0.6 X10*3/uL (0.1-1.2); Monocytes Percent Auto 12.7 % (2-11); Neutrophils Absolute Auto 2.5 x10*3/uL (2.0-8.3); Neutrophils Percent Auto 51.1 % (45-73); Platelet Count 334 X10*3/uL (160-400); Red Blood Count 4.55 X10*6/uL (4.20-5.50); Red Cell Distribution Width 12.8 % (11.0-16.0)
[2024-11-23 08:15] LABS: Appearance Urine Clear; Color Urine Yellow; Glucose Urine UA Negative (Negative); Leukocyte Esterase Urine Moderate (2+) (Negative); Nitrite Urine Negative (Negative); Specific Gravity - Urine 1.015 (1.005-1.025); UMIC TRIGGER UACC YES; Urine Blood Negative (Negative); Urine Ketones Negative (Negative); Urine Protein Negative (Neg-Trace)
[2024-11-23 08:20] LABS: Bacteria Urine None Seen (None Seen); Hyaline Casts Urine 0-2 /LPF (0-2); RBC Urine 0-2 /HPF (0-2); UACC Culture Trigger YES
[2024-11-23 08:46] LABS: Alanine Aminotransferase 21 U/L (0-31); Albumin Level 4.2 g/dL (3.5-5.0); Alkaline Phosphatase 80 U/L (39-117); Anion Gap 10 (12-20); Aspartate Amino Transferase 30 U/L (5-31); Bilirubin Total 0.5 mg/dL (0.0-1.0); Blood Urea Nitrogen 8 mg/dL (9-16); Calcium 9.9 mg/dL (8.4-10.2); Carbon Dioxide 25 mmol/L (22-29); Chloride 108 mmol/L (96-108); Cholesterol 225 mg/dL (<200); Estimated Glomerular Filt Rate > 60; Glucose Fasting 91 mg/dL (60-99); HDL Cholesterol 61 mg/dL (>40); LDL Cholesterol Calculated 142 mg/dL (<100); Potassium 3.7 mmol/L (3.3-5.1); Sodium 139 mmol/L (135-145); Total Protein 7.8 g/dL (6.5-8.0); Triglycerides 112 mg/dL (<150)
[2024-11-23 09:05] LABS: TSH reflex Free T4 0.39 uIU/mL (0.32-4.0); Vitamin D 25-OH Total 51.3 ng/mL (>30)
== END 2024-11-23 07:34 | disposition home or self-care (01) ==
LOC: HO.LAB 07:33
PROVIDERS: PCP Nurse Practitioner Family; Visit Provider Nurse Practitioner Family
DX: E55.9 Vitamin D deficiency, unspecified (principal); F41.9 Anxiety disorder, unspecified; N30.91 Cystitis, unspecified with hematuria; R31.29 Other microscopic hematuria
CPT/HCPCS: 36415; 80053; 80061; 81001; 82306; 84443; 85025; 87086

== ENCOUNTER 2024-12-19 09:40 | Outpatient (AMB) | payer MEDICARE, SELFPAY ==
--- NOTE | 2024-12-19 09:48 | A.OFFPC_ITS ---
Vital Signs 12/19/24 09:53 Height 5 ft 1.25 in Weight 131 lb BMI 24.5 BP 178/72 H Blood Pressure Location Rt brachial Pulse 93 Pulse Source Pulse Oximeter Temp 97.0 F Pulse Oximetry (%) 100 Intake Visit Reasons: Thyroid Intake Note: no other issues Allergies iron Allergy (Unknown, Verified 12/19/24 09:58) vomiting penicillin V Allergy (Unknown, Verified 12/19/24 09:58) rash Penicillins [PCN] Allergy (Unknown, Verified 12/19/24 09:58) HIVES alendronate sodium [Fosamax] Adverse Reaction (Unknown, Verified 12/19/24 09:58) body pains Medication List - Last Reconciled 12/19/24 by Luiza Castillo PA-C cholecalciferol (vitamin D3) 50 mcg PO DAILY levothyroxine 75 mcg PO DAILY Tobacco use date assessed: 05/26/23 Dental Screening Dental Screen Date: 05/26/23 [facility] Medical History Vitamin D deficiency Hx of screening mammography White coat syndrome with high blood pressure without hypertension Normal colonoscopy Normal Pap smear Annual physical exam Leukopenia Osteoporosis Hypercholesterolemia Hypothyroidism Anxiety Hyperkalemia Surgical History H/O colonoscopy Family History Father Afib Liver cancer Mother CAD (coronary artery disease) HTN (hypertension) Skin cancer Maternal Grandfather Cancer of spine Maternal Grandmother No problems noted. Paternal Grandfather Lung cancer Paternal Grandmother History of heart attack Brother No problems noted. Daughter No problems noted. Daughter No problems noted. Social History Household Members: Spouse Housing: House Alcohol intake: current Alcohol intake frequency: a few times a month Alcohol type: wine Patient Tobacco Use Status: Never used Tobacco e-Cigarette/Vaping Use: Never Used service: No Current occupational status: retired Cognitive needs: No Hearing needs: No Vision needs: Yes Questionnaire Thrive Questionnaire Date Thrive assessed: 10/27/21 Physical exam (Primary Care) Vital Signs: Last Vital Signs Temp 97.0 F 12/19/24 09:53 Pulse 93 12/19/24 09:53 BP 178/72 H 12/19/24 09:53 Pulse Ox 100 12/19/24 09:53 Care Plan Goal for BP management: 130/80; patient believes she might have white coat syndrome. Patient will monitor her blood pressure daily for the next 2 weeks and keep a blood pressure diary and return in 2 weeks with her blood pressure diary we will establish if she has white coat syndrome versus undiagnosed hypertension. BMI result Body Mass Index 24.5 normal bmi Tobacco/Smoking Status: Tobacco use Status Tobacco use date assessed 05/26/23 12/19/24 09:49 Patient Tobacco Use Status Never used Tobacco 12/19/24 09:49 e-Cigarette/Vaping Use Never Used 12/19/24 09:49 Thrive Assessment: Date of Thrive Assessment Date Thrive assessed 10/27/21 12/19/24 09:49 Coding Level of Care Code Est Pt Prev Care >65y(15517) Diagnoses Annual physical exam Z00.00 Hypothyroidism E03.9 White coat syndrome with high blood pressure without hypertension R03.0 Hypercholesterolemia E78.00 Assessment & Plan Assessment & Plan (1) Annual physical exam: Code(s): Z00.00 - Encounter for general adult medical examination without abnormal findings Category: Medical (2) Hypothyroidism: Code(s): E03.9 - Hypothyroidism, unspecified Category: Medical Plan: Patient currently on levothyroxine 75 mcg daily. Recently had her TSH level obtained on 11/23/2024 which was 0.39 within normal limits. Will continue current treatment regimen. Condition is chronic and stable continue to monitor. (3) White coat syndrome with high blood pressure without hypertension: Code(s): R03.0 - Elevated blood-pressure reading, without diagnosis of hypertension Category: Medical Plan: Patient believes she might have white coat syndrome. Her blood pressure is elevated at 178/72. Goal for blood pressure would be <130/80. Patient will keep a blood pressure diary daily at home for the next 2 weeks and return in 2 weeks with a blood pressure diary with her readings. Patient denies any neuro or cardiac related complaints. Condition is chronic and stable continue to monitor. (4) Hypercholesterolemia: Code(s): E78.00 - Pure hypercholesterolemia, unspecified Category: Medical Plan: Patient's total cholesterol is 224. LDL 142. HDL 61. Goal for LDL is less than 100 and go for total cholesterol is less than 200. Patient is hesitant about starting a statin. I explained to her we can start either fish oil, coenzyme Independence 3 or other alternatives for high cholesterol due to her ASCVD score is 17.6%. Patient will return in 2 weeks to discuss further. Condition is chronic and stable continue to monitor. Plan Plan To manage hypothyroidism, I will continue the patient on her current dose of Levothyroxine, as recent tests indicate controlled thyroid levels. For dy slipidemia, we discussed alternative therapies such as omega-3 supplements or coenzyme due to muscle ache history with statins. I advised ongoing monitoring of her cholesterol levels and reinforced lifestyle modifications for cardiovascular health. Concerning blood pressure, I instructed the patient to monitor her reading daily at home to differentiate persistent hypertension from potential white coat syndrome, with a planned follow-up to adjust treatment accordingly if readings remain elevated. A colonoscopy is due given the scheduled interval. Recent stabilization of previously abnormal white blood cell counts warrants no intervention. Orders: Orders C Reactive Protein Today Z00.00 - Encounter for general adult medical examination without abnormal findings Hemoglobin A1c Today Z00.00 - Encounter for general adult medical examination without abnormal findings TSH reflex Free T4 Today Z00.00 - Encounter for general adult medical examination without abnormal findings Vitamin B1 Today Z00.00 - Encounter for general adult medical examination without abnormal findings Lipid Panel Today Z00.00 - Encounter for general adult medical examination without abnormal findings Complete Blood Count Auto Diff Today Z00.00 - Encounter for general adult medical examination without abnormal findings Comprehensive Keyes. Panel Fast Today Z00.00 - Encounter for general adult medical examination without abnormal findings Magnesium Today Z00.00 - Encounter for general adult medical examination withou t abnormal findings Vitamin B12 and Folate Today Z00.00 - Encounter for general adult medical examination without abnormal findings Vitamin D 25-OH Total Today Z00.00 - Encounter for general adult medical examination without abnormal findings Liver Panel Today Z00.00 - Encounter for general adult medical examination w ithout abnormal findings Patient Instructions: Patient Instructions - Continue taking Levothyroxine as prescribed. - Monitor blood pressure daily at home and record readings. - Research and consider omega-3 or coenzyme Q10 supplements for cholesterol management. - Maintain a healthy diet and regular physical activity to manage cholesterol. - Schedule a colonoscopy based on the recommended interval. - Return for follow-up in two weeks for reassessment of blood pressure. - Visit the ER if experiencing chest pain, severe headache, or significant dizziness with elevated blood pressure readings. Scribe Plan - Not visible on output: History of Present Illness The patient is a 69-year-old female presenting for an annual physical examination with focus on continued management of hypothyroidism and reassessment of her blood pressure and cholesterol levels. She maintains her prescribed Levothyroxine, and during a conversation about previous treatment interruptions noted an acceptable adjustment in thyroid function. Her past managed conditions include hypothyroidism and low white blood cell counts, the latter currently stable. She was previously managed for suspected urinary tract infections resolved with negative cultures. The patient's cholesterol remains elevated with LDL levels at concerning levels; she has a history of muscle aches associated with statin use and prefers to manage dyslipidemia through nutritional intervention. Diagnosed Essential Hypertension was observed during the visit, with blood pressure reading elevated, and she plans to monitor this through home measurements due to the possibility of white coat syndrome influencing readings. She also has previously documented osteopenia with unsatisfactory tolerance of osteoporosis medications and has been advised of her colonoscopy follow-up. This record shows that both chronic and recent conditions are being managed, with ongoing assessment of cardiovascular risks given family history. Social History - Long-term resident of her current community. 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 - Has familial history of heart disease notably prevalent in her family lineage. Review of Systems - Cardiovascular: Reports no chest pain or shortness of breath with activity. - Musculoskeletal: Reports muscle aches previously when on statins. - Hematologic: Denies recent symptoms associated with low white blood cell count. Physical Exam Appearance: Alert. Oriented X3. No acute distress. Head: Normal external exam. Normocephalic. Atraumatic. Eyes: Pupils are equal, round, and reactive to light. Extraocular movements intact. Conjunctiva and sclera normal. Eyelids normal. Ears: External auditory canal normal. Tympanic membranes normal. Throat: Pharynx normal. Uvula midline. Moist mucous membranes. Neck: Normal inspection. Neck supple. Full range of motion. No adenopathy. Thyroid Normal. No meningeal signs. No neck mass noted. Cardiovascular: Tachycardic. Heart sound normal. No murmurs noted. Pulses normal throughout. Respiratory: No respiratory distress. Painless inspiration. Breath sounds normal. No wheezes/rales/rhonchi noted. Chest nontender. No accessory muscle usage noted or decreased air movement noted. Abdomen: Soft and nontender. Bowel sounds normal in all 4 quadrants. No distention noted. No organomegaly noted. No visible injury noted. Back: No costovertebral angle tenderness. Full range of motion noted. Skin: Skin warm and dry. Normal skin color. Normal skin turgor. No rashes/lesions/lacerations noted. Extremities: No lower extremity edema. Extremities exhibit normal range of motion. Extremities nontender. Neuro: Oriented X 3. No motor deficit. No sensory deficit. Reflexes normal. Results - Labs: Thyroid function tests normal, LDL cholesterol elevated at 142 mg/dL, total cholesterol 225 mg/dL. - Imaging: Previous CAT scan of kidneys and related structures normal. - Diagnostics: Recent mammogram and bone density test available, with mammogram due again in March 2024. Plan To manage hypothyroidism, I will continue the patient on her current dose of Levothyroxine, as recent tests indicate controlled thyroid levels. For d yslipidemia, we discussed alternative therapies such as omega-3 supplements or coenzyme due to muscle ache history with statins. I advised ongoing monitoring of her cholesterol levels and reinforced lifestyle modifications for cardiovascular health. Concerning blood pressure, I instructed the patient to monitor her reading daily at home to differentiate persistent hypertension from potential white coat syndrome, with a planned follow-up to adjust treatment accordingly if readings remain elevated. A colonoscopy is due given the scheduled interval. Recent stabilization of previously abnormal white blood cell counts warrants no intervention. Patient was informed and verbally consented to the use of an ambient scribe for clinic note documentation during this visit. Discussion Notes I reviewed with the patient her ongoing management for hypothyroidism, noting stable thyroid levels with her current dosage of Levothyroxine. Regarding dyslipidemia, we discussed the risks and benefits of statins and potential alternatives like omega-3 or coenzyme Q10 supplements due to adverse reactions. She was educated about the cardiovascular benefits associated with these alternatives. We addressed her elevated blood pressure, emphasizing home monitoring to evaluate the need for antihypertensive medication, suspecting possible white coat syndrome. I communicated the importance of lifestyle kailtynn fications considering her family history of heart disease and her ASCVD risk score, discussing her lifetime cardiovascular event risk. I outlined my plan for a subsequent evaluation in two weeks, either in-person or via telehealth, to reassess blood pressure readings from home monitoring. Follow-up instructions for immediate attention should symptoms or increased blood pressure occur that warrant emergency care were also provided. Patient Instructions - Continue taking Levothyroxine as prescribed. - Monitor blood pressure daily at home and record readings. - Research and consider omega-3 or coenzyme Q10 supplements for cholesterol management. - Maintain a healthy diet and regular physical activity to manage cholesterol. - Schedule a colonoscopy based on the recommended interval. - Return for follow-up in two weeks for reassessment of blood pressure. - Visit the ER if experiencing chest pain, severe headache, or significant dizziness with elevated blood pressure readings.
[2024-12-19 09:53] VITALS: BP 178/72; PULSE 93; TEMP 36.1; O2SAT 100; BMI 24.5
--- OUTSIDE RECORDS SUMMARY | 2024-12-19 10:55 | XMS_ITS | Patient Health Record ---
Author Organization [facility] Address [address] [place] [phone] Care Team Providers Care Charger Operator Name Role Phone DOROTHY FORD Primary Care Provider Rowdy Dailey [phone] ALLERGIES Allergen (clinical drug ingredient) Drug/Non Drug Allergy documented on EMR Reaction Allergy Type Onset Date Status Penicillin Unknown Drug Allergy Active ferrous sulfate Iron Unknown Drug Allergy A ctive REASON FOR REFERRAL No Information MEDICATIONS Medication SIG (Take, Route, Fr equency, Duration) Notes Start Date End Date Status Synthroid 75 MCG 1 tablet on an empty stomach in the morning Orally Once a day Active Vancomycin HCl 250 MG 1 Orally One 4 ilya es a day for 2 weeks, then One twice a day for 2 weeks, then One daily for two weeks, then One every other day for two weeks, and then One every third day for 2 weeks for 70 days 08/05/2023 Active Vancomycin HCl 125 MG 1 capsule Orally e very 6 hrs for 10 days 06/19/2023 Active SOCIAL HISTORY Tobacco Use: Social History Observation Description Date Details (start date - stop date) Never Smoker NA - NA Sex Assigned At : Social History Observation Description Sex Assigned At Unknown Tobacco Use/Smoking Question Answer Notes Patient is a nonsmoker Alcohol Screen Question Answer Notes Did you have a drink contain ing alcohol in the past year? Yes How often did you have a dri nk containing alcohol in the past year? Monthly or less (1 point) How many drinks did you have on a typical day when you were drinking in the past year? 1 or 2 drinks (0 point) Points 1 Interpretation Negative PROBLEMS Problem Type ICD Code Onset Dates Problem Status W/U Status Risk SNOMED Code Notes Problem Encounter for screening for malignant neoplasm of colon (Z12.11) Active confirmed 720460836 Problem Preprocedural examination (Z01.818) Active confirmed 212066628 Problem Rectal bleed (K62.5) Active confirmed 70715522 Problem Abdominal pain, generalized (R10.84) Active confirmed 844501159 Problem Diarrhea of presumed infectious origin (R19.7) Active confirmed 74272481 Problem History of Clostridioides difficile infection (Z86.19) Active confirmed 956220321710241 Problem C. 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) Active confirmed 6432116849764 PLAN OF TREATMENT Pending Test Test Name Order Date CHEM 7 PROFILE 06/17/2023 LIVER PROFILE 06/17/2023 CBC w DIFF 06/17/2023 STOOL WBC 08/04/2023 STOOL WBC 06/17/2023 C DIFFICILE RFLX PCR 08/04/2023 C DIFFICILE RFLX PCR 06/17/2023 Future Test Test Name Order Date COLONOSCOPY 08/19/2017 Insurance Providers Payer Name Payer Address Payer Phone Subscriber Number Group Number Insured Name Patient Relationship to Insured Coverage Start Date Coverage End Date [facility] [address] [place] [address] [phone] [id number] MARIA FERNANDA ABREU Self - patient is the insured MEDICAL (GENERAL) HISTORY Medical History History ICD Code Hypothyroidism Denies DE,DM,CVA,Lung disease,renal dise ase Negative screening colonosco py in June 2008--diverticulosis and internal hemorrhoids Surgical History Surgery Date(Month/Year) Uterine fibroid
--- OUTSIDE RECORDS SUMMARY | 2024-12-19 10:55 | XMS_ITS ---
Author Organization [facility] Address [address] [place] [phone] Care Team Providers Care Kitchen Helper Name Role Phone DOROTHY FORD Primary Care Provider Rowdy Dailey [phone] REASON FOR VISIT appt this wednesday Encounters Encounter Location Date Provider Diagnosis [facility] [address] [place] [phone] 11/24/2023 Rowdy Baez PLAN OF TREATMENT No Information
--- OUTSIDE RECORDS SUMMARY | 2024-12-19 10:55 | XMS_ITS ---
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) Active confirmed [id number] Encounters Encounter Location Date Provider Diagnosis [facility] [address] [place] [phone] 08/05/2023 Rowdy Baez Recurrent Clostridio ides difficile diarrhea A04.71 ASSESSMENTS Encounter Date Diagnosis Assessment Notes Treatment Notes Treatment Clinical Notes 08/05/2023 Recurrent Clostridioides difficile diarrhea (ICD-10 - A04.71) PLAN OF TREATMENT Medication Medication Name Sig Start Date Stop Date Notes Vancomycin HCl 250 MG 1 Orally One 4 ilya es a day for 2 weeks, then One twice a day for 2 weeks, then One daily for two weeks, then One every other day for two weeks, and then One every third day for 2 weeks for 70 days 08/05/2023
--- OUTSIDE RECORDS SUMMARY | 2024-12-19 10:55 | XMS_ITS ---
Author Organization [facility] Address [address] [place] [address] Care Team Providers Care Pipe Coverer And Insulator Name Role Phone DOROTHY FORD Primary Care Provider Rowdy Dailey [phone] REASON FOR VISIT Patient presents today for c diff Encounters Encounter Location Date Provider Diagnosis [facility] [address] [place] [address] 11/26/2023 Rowdy Baez PLAN OF TREATMENT No Information
== END 2024-12-19 10:26 | disposition home or self-care (01) ==
LOC: HO.HMCSH 09:40
PROVIDERS: PCP Internal Medicine; Visit Provider Physician Assistant Medical
DX: Z00.00 Encounter for general adult medical examination without abnormal findings (principal); E03.9 Hypothyroidism, unspecified; R03.0 Elevated blood-pressure reading, without diagnosis of hypertension; E78.00 Pure hypercholesterolemia, unspecified

== ENCOUNTER → 2024-12-19 09:40 | Outpatient (BNVA) | payer MEDICARE, SELFPAY | PROVIDERS: PCP Internal Medicine; Visit Provider Physician Assistant Medical | DX: Z00.00 Encounter for general adult medical examination without abnormal findings (principal); E03.9 Hypothyroidism, unspecified; R03.0 Elevated blood-pressure reading, without diagnosis of hypertension; E78.00 Pure hypercholesterolemia, unspecified | CPT/HCPCS: 99397 ==

== ENCOUNTER 2025-01-02 09:24 | Outpatient (AMB) | payer MEDICARE, SELFPAY ==
--- NOTE | 2025-01-02 09:27 | A.OFFPC_ITS ---
Vital Signs 01/02/25 09:30 Height 5 ft 11 in Weight 132 lb BMI 18.4 BP 160/60 H Blood Pressure Location Lt brachial Pulse 88 Pulse Source Pulse Oximeter Temp 97.5 F Pulse Oximetry (%) 100 Intake Visit Reasons: 2 week f/u Intake Note: no other issues Allergies iron Allergy (Unknown, Verified 01/02/25 09:57) vomiting penicillin V Allergy (Unknown, Verified 01/02/25 09:57) rash Penicillins [PCN] Allergy (Unknown, Verified 01/02/25 09:57) HIVES alendronate sodium [Fosamax] Adverse Reaction (Unknown, Verified 01/02/25 09:57) body pains Medication List - Last Reconciled 01/02/25 by Luiza Castillo PA-C cholecalciferol (vitamin D3) 50 mcg PO DAILY levothyroxine 75 mcg PO DAILY lorazepam (Ativan) 0.5 mg PO DAILY PRN Tobacco use date assessed: 05/26/23 Dental Screening Dental Screen Date: 05/26/23 [facility] Medical History Vitamin D deficiency Hx of screening mammography White coat syndrome with high blood pressure without hypertension Normal colonoscopy Normal Pap smear Annual physical exam Leukopenia Osteoporosis Hypercholesterolemia Hypothyroidism Anxiety Hyperkalemia Surgical History H/O colonoscopy Family History Father Afib Liver cancer Mother CAD (coronary artery disease) HTN (hypertension) Skin cancer Maternal Grandfather Cancer of spine Maternal Grandmother No problems noted. Paternal Grandfather Lung cancer Paternal Grandmother History of heart attack Brother No problems noted. Daughter No problems noted. Daughter No problems noted. Social History Household Members: Spouse Housing: House Alcohol intake: current Alcohol intake frequency: a few times a month Alcohol type: wine Patient Tobacco Use Status: Never used Tobacco e-Cigarette/Vaping Use: Never Used service: No Current occupational status: retired Cognitive needs: No Hearing needs: No Vision needs: Yes Questionnaire Thrive Questionnaire Date Thrive assessed: 10/27/21 Physical exam (Primary Care) Vital Signs: Last Vital Signs Temp 97.5 F 01/02/25 09:30 Pulse 88 01/02/25 09:30 BP 160/60 H 01/02/25 09:30 Pulse Ox 100 01/02/25 09:30 Care Plan Goal for BP management: <130/80 patient will continue to monitor her blood pressure at home her blood pressures are 130s over 80. She only had 2 blood pressure readings that were at 140/80. Will reassess at next visit patient would like to continue staying off of any antihypertensives at this time. BMI result Body Mass Index 18.4 normal BMI Tobacco/Smoking Status: Tobacco use Status Tobacco use date assessed 05/26/23 01/02/25 09:35 Patient Tobacco Use Status Never used Tobacco 01/02/25 09:35 e-Cigarette/Vaping Use Never Used 01/02/25 09:35 Thrive Assessment: Date of Thrive Assessment Date Thrive assessed 10/27/21 01/02/25 09:35 Coding Level of Care Code Est Pt Level 4 (54091) Complex EM visit Add On G2211 Diagnoses White coat syndrome with high blood pressure without hypertension R03.0 Hypercholesterolemia E78.00 Anxiety F41.9 Assessment & Plan Assessment & Plan (1) White coat syndrome with high blood pressure without hypertension: Code(s): R03.0 - Elevated blood-pressure reading, without diagnosis of hypertension Category: Medical Plan: Current hypertension management strategies emphasize ongoing home blood pressure monitoring. Given average acceptable readings and acknowledged clinic-induced hypertension, no immediate medication adjustment is necessary. Follow-up to reassess management is scheduled. Condition is stable continue to monitor. (2) Hypercholesterolemia: Code(s): E78.00 - Pure hypercholesterolemia, unspecified Category: Medical Plan: Patient is deciding to trial diet and exercise before being started on any cholesterol-lowering medication at this time. Condition is chronic and stable. (3) Anxiety: Code(s): F41.9 - Anxiety disorder, unspecified Category: Medical Plan: Will restart patient on the lorazepam 0.5 mg as needed as prescribed by prior provider. Refer to therapist. Condition is chronic and stable continue to monitor. Plan Plan Patient was informed and verbally consented to the use of an ambient scribe for clinic note documentation during this visit. 1. Anxiety Disorder Anxiety will be pharmacologically managed using lorazepam 0.5 mg taken as needed, addressing episodic increases in stress levels. The patient is referred for psychotherapy, facilitating comprehensive management. 2. Essential Hypertension Current hypertension management strategies emphasize ongoing home blood pressure monitoring. Given average acceptable readings and acknowledged clinic-induced hypertension, no immediate medication adjustment is necessary. Follow-up to reassess management is scheduled. 3. Hypercholesterolemia Management strategies focus on lifestyle interventions including dietary adjustments and physical activity. Follow-up lipid panels will assess intervention effectiveness. Discussion Notes In this visit, I discussed the implications and management of essential hyp ertension, anxiety disorder, and hypercholesterolemia. We explored the patient's history, noting factors influencing her hypertension, including familial stress and anxiety. I recommended lorazepam for acute anxiety, providing a 10-pill prescription and facilitated therapy referral for long-term management. The risks and benefits were outlined, particularly with regards to benzodiazepine use and its potential impact on episodic anxiety events. Follow-up plans include physical examination and revisiting issues at an July appointment. Orders: Referrals Counseling Referral F41.9 - Anxiety disorder, unspecified, R03.0 - Elevated blood-pressure reading, without diagnosis of hypertension Medications: New lorazepam (Ativan) 0.5 mg PO DAILY PRN 10 tabs 0RF anxiety Patient Instructions: Patient Instructions - Continue monitoring blood pressures at home and document the readings. - Use lorazepam 0.5 mg as needed for acute anxiety episodes. - Await contact from a referral therapist; anticipate attending therapy sessions. - Focus on lifestyle modifications, emphasizing a heart-healthy diet and regular exercise to manage cholesterol. - Follow up in six months for regular review and physical examination. Scribe Plan - Not visible on output: History of Present Illness The patient is a 69-year-old female presenting for follow-up principally concerning hypertension and anxiety. Her home-monitored blood pressure ranges between 133/80 mmHg and 120/xx, with occasional spikes to 140/xx. In-clinic hypertension is noted post stressful events, aligning with her history of white coat syndrome. No related cardiopulmonary symptoms, such as chest pain or dyspnea are noted. 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 The patient describes significant stress due to familial responsibilities, with references to the burden since inception, marital, and children-related challenges exacerbating her mental health, further supported by historical incidences. Additionally, the patient reports being prescribed lorazepam in prior years for infrequent intense anxiety episodes with noted efficacy. New medications have not been pursued after previous prescriptions lapsed. An existing diagnosis of hypercholesterolemia is documented, with discussions around lifestyle changes for cholesterolemia management. Blood work results show controlled leukocyte levels, yet highlight concerns around cholesterol management. 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 - The patient has faced significant family and business-related stress, impacting mental health. - Business involves family members, adding to interpersonal complexity and stress. - Historical multiple familial losses, including parents simultaneously 10 years ago. - Expressed desire for business exit due to fatigue and desire for personal time. Review of Systems - Cardiovascular: Denies chest pain or dyspnea. - Neurological: Denies dizziness or headaches. Reports anxiety. - Psychological: Reports anxiety exacerbated by stress. - General: Denies thoughts of self-harm or suicide. Physical Exam Appearance: Alert. Oriented X3. No acute distress. Head: Normal external exam. Normocephalic. Atraumatic. Eyes: Pupils are equal, round, and reactive to light. Extraocular movements intact. Conjunctiva and sclera normal. Eyelids normal. Ears: External auditory canal normal. Tympanic membranes normal. Throat: Pharynx normal. Uvula midline. Moist mucous membranes. Neck: Normal inspection. Neck supple. Full range of motion. No adenopathy. Thyroid Normal. No meningeal signs. No neck mass noted. Cardiovascular: Normal heart rate and rhythm. Heart sound normal. No murmurs noted. Pulses normal throughout. Respiratory: No respiratory distress. Painless inspiration. Breath sounds normal. No wheezes/rales/rhonchi noted. Chest nontender. No accessory muscle usage noted or decreased air movement noted. Abdomen: Soft and nontender. Bowel sounds normal in all 4 quadrants. No distention noted. No organomegaly noted. No visible injury noted. Back: No costovertebral angle tenderness. Full range of motion noted. Skin: Skin warm and dry. Normal skin color. Normal skin turgor. No rashes/lesions/lacerations noted. Extremities: No lower extremity edema. Extremities exhibit normal range of motion. Extremities nontender. Neuro: Oriented X 3. No motor deficit. No sensory deficit. Reflexes normal. Results - Labs: Previous blood work indicated normal leukocyte levels; hypercholesterolemia noted. - Tests and Diagnostics: Blood pressure generally maintained within acceptable range at home with occasional spikes noted.
[2025-01-02 09:30] VITALS: BP 160/60; PULSE 88; TEMP 36.4; O2SAT 100; BMI 18.4
--- OUTSIDE RECORDS SUMMARY | 2025-01-02 10:15 | XMS_ITS ---
Author Organization [facility] Address [address] [place] [phone] Care Team Providers Care Intake Man Name Role Phone DOROTHY FORD Primary Care Provider Rowdy Dailey [phone] REASON FOR VISIT appt this wednesday Encounters Encounter Location Date Provider Diagnosis [facility] [address] [place] [phone] 11/24/2023 Rowdy Baez Plan Of Treatment No Information Progress Notes * HARLEEN ABREUENDOB:[birth year] 54 (68 yo F)Acc No.[id number]:11/24/2023 Patient:?BRADY MARIA FERNANDA :1955???Age:68 Y???Sex:Female Address:[address] [place] [id number] * true * Date:? Generated for Cherry boggs/Antonio/eTransmitting on:?01/02/2025 10:14 AM EDT
--- OUTSIDE RECORDS SUMMARY | 2025-01-02 10:15 | XMS_ITS ---
Author Organization [facility] Address [address] [place] [phone] Care Team Providers Care Employment Advisor Name Role Phone DOROTHY FORD Primary Care Provider Rowdy Dailey [phone] REASON FOR VISIT Patient presents today for c diff Encounters Encounter Location Date Provider Diagnosis [facility] [address] [place] [phone] 11/26/2023 Rowdy Baez Plan Of Treatment No Information Progress Notes * HARLEEN ABREUENDOB:[birth year] 54 (69 yo F)Acc No.[id number]:11/26/2023 Progress Notes Patient:?MARIA FERNANDA ABREU Provider:?Rowdy Baez MD :1955???Age:68 Y???Sex:Female D ate:11/26/2023 Address:[address] [place], [place] [id number] Pcp:DOROTHY FORD Subjective: * Chief Complaints: * ???1. Patient presents today for c diff. * Medical History:? Objective: * Vitals:? Assessment: Plan: * Treatment: * * The named appointment provid er may or may not be the originator of this progress note, and it is not deemed complete until electronically signed by the appointment provider. Sign off status: Pending * Provider:?Rowdy Baez MD Date:? 024 Generated for Dexteri ng/Fakimberleeg/eTransmitting on:?01/02/2025 10:15 AM EDT
--- OUTSIDE RECORDS SUMMARY | 2025-01-02 10:15 | XMS_ITS ---
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 Encounters Encounter Location Date Provider Diagnosis [facility] [address] [phone] 08/05/2023 Rowdy Baez Recurrent Clostridio ides difficile diarrhea A04.71 Assessments Encounter Date Diagnosis (ICD Code) Assessment Notes Treatment Notes Treatment Clinical Notes Section Notes 08/05/2023 Recurrent Clostridioides difficile diarrhea (ICD-10 - A04.71) Plan Of Treatment Medication Medication Name Sig Start Date Stop Date Notes Vancomycin HCl 250 MG 1 Orally One 4 ilya es a day for 2 weeks, then One twice a day for 2 weeks, then One daily for two weeks, then One every other day for two weeks, and then One every third day for 2 weeks for 70 days 08/05/2023 Progress Notes * HARLEEN ABREUENDOB:[birth year] 54 (67 yo F)Acc No.[id number]:08/05/2023 Patient:?MARIA FERNANDA ABREU :1955???Age:67 Y???Sex:Female Address:[address] [place] [address] * Refills? Start Vancomycin HCl Capsule, 250 MG, Orally, 110, 1, One 4 times a day for 2 weeks, then One twice a day for 2 weeks, then One daily for two weeks, then One every other day for two weeks, and then One every third day for 2 weeks, 70 days, Refills=0 Subjective: * Chief Complaints: * ??? * Medical History:? * Surgical History:? * Hospitalization/Major Diagno stic Procedure:? * Medications:?TakingSynthroid 75 MCG Tablet 1 tablet on an empty stomach in the morning Orally Once a dayVancomycin HCl 125 MG Capsule 1 capsule Orally every 6 hrsTaking Synthroid 75 MCG Tablet 1 tablet on an empty stomach in the morning Orally Once a dayTaking Vancomycin HCl 125 MG Capsule 1 capsule Orally every 6 hrs Objective: Assessment: * Assessment: 1.?Recurrent Clostridioides difficile diarrhea - A04.71? Plan: * Treatment: * Procedure Codes:? * true * Date:? Generated for Cherry boggs/Antonio/Annettesmitting on:?01/02/2025 10:15 AM EDT
--- OUTSIDE RECORDS SUMMARY | 2025-01-02 10:15 | XMS_ITS | Patient Health Record ---
Author Organization [facility] Address [address] [place] [phone] Care Team Providers Care Torch Brazer Name Role Phone DOROTHY FORD Primary Care Provider Rowdy Dailey [phone] Allergies Allergen (clinical drug ingredient) Drug/Non Drug Allergy documented on EMR Reaction Allergy Type Onset Date Status Penicillin Unknown Drug Allergy Active ferrous sulfate Iron Unknown Drug Allergy A ctive Reason For Referral No Information Medications Medication SIG (Take, Route, Fr equency, [...] 6 hrs for 10 days 06/19/2023 Active Social History Tobacco Use: Social History Observation Description Date Details (start date - stop date) Never Smoker NA - NA Tobacco Use/Smoking Question Answer Notes Patient is [...] drinks (0 point) Points 1 Interpretation Negative Section Notes: Nonsmoker; no sig alcohol Problems Problem Type SNOMED Code ICD Code Onset Dates Problem Status W/U Status Risk Notes Problem [id number] Encounter for screening for malignant neoplasm of colon (Z12.11) Active confirmed Problem 026252669 Preprocedural examination (Z01.818) Active confirmed Problem 53307500 Rectal bleed (K62.5) Active confirmed Problem 263701576 Abdominal pain, generalized (R10.84) Active confirmed Problem 13191727 Diarrhea of presumed infectious origin (R19.7) Active confirmed Problem 057902605895435 History of Clostridioides difficile infection (Z86.19) Active confirmed Problem 0872845155871 C. 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 Plan Of Treatment Pending Test Test Name Order Date CHEM 7 PROFILE 06/17/2023 LIVER PROFILE 06/17/2023 CBC w DIFF 06/17/2023 STOOL WBC 08/04/2023 STOOL WBC 06/17/2023 C DIFFICILE RFLX PCR 06/17/2023 C DIFFICILE RFLX PCR 08/04/2023 Future Test Test Name Order Date COLONOSCOPY 08/19/2017 Insurance Providers Payer Name Payer Address Payer Phone Subscriber Number Group Number Insured Name Patient Relationship to Insured Coverage Start Date Coverage End Date [facility] [address] [place] [address] [id number] MARIA FERNANDA ABREU Self - patient is the insured Medical (General) History Medical History History ICD Code Hypothyroidism Denies [place],DM,CVA,Lung disease,renal dise ase Negative screening colonosco py in June 2008--diverticulosis and internal hemorrhoids Surgical History Surgery Date(Month/Year) Uterine fibroid
== END 2025-01-02 09:58 | disposition home or self-care (01) ==
LOC: HO.HMCSH 09:24
PROVIDERS: PCP Internal Medicine; Visit Provider Physician Assistant Medical
DX: R03.0 Elevated blood-pressure reading, without diagnosis of hypertension (principal); E78.00 Pure hypercholesterolemia, unspecified; F41.9 Anxiety disorder, unspecified

== ENCOUNTER → 2025-01-02 09:24 | Outpatient (BNVA) | payer MEDICARE, SELFPAY | PROVIDERS: PCP Internal Medicine; Visit Provider Physician Assistant Medical | DX: R03.0 Elevated blood-pressure reading, without diagnosis of hypertension (principal); E78.00 Pure hypercholesterolemia, unspecified; F41.9 Anxiety disorder, unspecified | CPT/HCPCS: 99212 ==

== ENCOUNTER 2025-04-06 07:19 | Outpatient (REF) | payer MEDICARE, SELFPAY ==
--- OUTSIDE RECORDS SUMMARY | 2023-11-24 05:23 | XMS_ITS ---
Author Organization [facility] Address [address] [place] [id number] Care Team Providers Care Preparation Supervisor Canning Name Role Phone DOROTHY FORD Primary Care Provider Rowdy Dailey [phone] REASON FOR VISIT appt this wednesday Encounters Encounter Location Date Provider Diagnosis [facility] [address] [place] [id number] 11/24/2023 Rowdy Baez Plan Of Treatment No Information Progress Notes * HARLEEN ABREUENDOB:[birth year] (68 yo F)Acc No.[id number]:11/24/2023 Patient: HARLEEN HOLGUINEN :1955 A ge:68 Y S ex:Female Address:[address] [place] [id number] * true * Date: Generated for Cherry boggs/Antonio/eTvaleriesmitting on: 0 04/06/2025 07:21 AM EDT
--- NOTE | ~2025-04-06 | MM_ITS ---
EXAMINATION: MM SCREENING DIGITAL BREAST TOMOSYNTHESIS, BILATERAL CLINICAL INFORMATION: Screening. Asymptomatic. COMPARISON: Mammography: Comparison is made with available priors TECHNIQUE: Digital breast mammography with tomosynthesis is performed in both the craniocaudal and mediolateral oblique views along with computer-aided detection (CAD). FINDINGS: The breasts are heterogeneously dense, which may obscure small masses (ACR BI-RADS breast composition Category c). Left: Focal asymmetry upper outer breast posterior depth. No suspicious calcifications or other abnormal findings. Right: There are no significant masses, abnormal calcifications, or other abnormalities. MM/MM tomosynthesis screening BI IMPRESSION: Additional imaging is recommended ASSESSMENT: BI-RADS BI-RADS 0 - Incomplete: Needs additional Imaging. RECOMMENDATION: 1. Additional views of the left breast. 2. Targeted ultrasound if warranted after review of the additional views. 3. Radiology department staff will contact the patient for additional imaging. Additional Imaging required This examination should not preclude the clinical evaluation of a suspicious palpable abnormality. This patient's information was entered into a reminder system with a target due date for their next mammogram. Electronically signed by: Carol Ackerman DO 04/11/2025 03:07 PM EDT
== END 2025-04-06 07:20 | disposition home or self-care (01) ==
LOC: HO.MAMMO 07:19
PROVIDERS: PCP Internal Medicine; Visit Provider Internal Medicine
DX: Z12.31 Encounter for screening mammogram for malignant neoplasm of breast (principal)
CPT/HCPCS: 77063; 77067

== ENCOUNTER → 2025-04-06 07:30 | Outpatient (BNV) | payer MEDICARE, SELFPAY | PROVIDERS: Visit Provider Internal Medicine | DX: Z12.31 Encounter for screening mammogram for malignant neoplasm of breast (principal) | CPT/HCPCS: 77063; 77067 ==

== ENCOUNTER 2025-05-09 08:41 | Outpatient (AMB) | payer MEDICARE, SELFPAY ==
--- NOTE | 2025-05-09 08:51 | AM.OFFWIN_ITS ---
Intake Vital Signs 05/09/25 08:52 Height 5 ft 2 in Weight 134 lb BMI 24.5 BP 180/84 H Blood Pressure Location Rt brachial Position Sitting Pulse 74 Pulse Source Pulse Oximeter Temp 98.0 F Temp Source Oral Pulse Oximetry (%) 98 Oxygen Delivery Method Room Air Intake Visit Reasons: EP ? 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 Is last menstrual period known: No Post menopausal: Yes Patient : No Allergies iron Allergy (Unknown, Verified 05/09/25 08:58) vomiting penicillin V Allergy (Unknown, Verified 05/09/25 08:58) rash Penicillins (PCN) Allergy (Unknown, Verified 05/09/25 08:58) HIVES alendronate sodium (Fosamax) Adverse Reaction (Unknown, Verified 05/09/25 08:58) body pains Medication List - Last Reconciled 05/09/25 by Camilo Guillaume MD cholecalciferol (vitamin D3) 50 mcg PO DAILY levothyroxine 75 mcg PO DAILY lorazepam (Ativan) 0.5 mg PO DAILY PRN Do you need a note to return to daycare/school/sports/work: No HPI EP ? tick bite behind RT ear HPI Details History - The patient is a 69-year-old female pr esenting with concerns of an insect bite on the right ear. - The patient reports waking up with a h ot and scratchy sensation in the right ear. - She engaged in gardening activities pr ior to the onset of symptoms and suspe cts the involvement of a tick or spider due to previous episodes with similar triggers. - The patient did not observe any visibl e insect but noted some residue at the edge of her hair. 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 - The presence of swelling and redness o n the ear was noted without any significant improvement. - Additionally, she experiences white co at syndrome which exacerbates her anxiety. - The patient reports recurring high blo od pressure readings, with a current measurement of 180/84 mmHg, acknowledging anxiety as a major contributing factor. - She is experiencing anxiety exacerbate d by an upcoming mammogram appointment which was delayed. Medical History: - White coat syndrome with associated an xiety. - Known history of elevated blood pressu re. Due to anxiety Medications: - Lorazepam: Taken as needed to manage a nxiety, although the supply is limited and often used sparingly. Problem List - Suspected insect bite on right ear wit h cellulitis - Elevated blood pressure - White coat syndrome with anxiety Patient Instructions - Take lorazepam as prescribed to help m anage anxiety and reduce blood pressure. - Take the prescribed antibiotic and Med rol Dosepak to address the ear inflammation and prevent infection. - Consider using gssm-jik-jzcsaxa antihi stamine like Benadryl . - Monitor blood pressure regularly and r eport any significant changes. - Refill and follow the prescription ins tructions as provided. Review of Systemstments. 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 Paternal Grandfather Lung cancer Paternal Grandmother History of heart attack Brother No problems noted. Daughter No problems noted. Daughter No problems noted. Social History Household Members: Spouse Housing: House Alcohol intake: current Alcohol intake frequency: a few times a month Alcohol type: wine Patient Tobacco Use Status: Never used Tobacco e-Cigarette/Vaping Use: Never Used Patient : No service: No Current occupational status: retired Cognitive needs: No Hearing needs: No Vision needs: Yes Physical Exam Vital Signs: Last Vital Signs Temp 98.0 F 05/09/25 08:52 Pulse 74 05/09/25 08:52 BP 180/84 H 05/09/25 08:52 Pulse Ox 98 05/09/25 08:52 Oxygen Delivery Method Room Air 05/09/25 08:52 BMI result Body Mass Index 24.5 Assessment & Plan Assessment & Plan (1) Insect bite of right ear: Code(s): S00.461A - Insect bite (nonvenomous) of right ear, initial encounter; W57.XXXA - Bitten or stung by nonvenomous insect and other nonvenomous arthropods, initial encounter Qualifiers: Encounter type: initial encounter Qualified Code(s): S00.461A - Insect bite (nonvenomous) of right ear, initial encounter; W57.XXXA - Bitten or stung by nonvenomous insect and other nonvenomous arthropods, initial encounter (2) Swelling of right ear: Code(s): H93.8X1 - Other specified disorders of right ear (3) Cellulitis of right ear: Code(s): H60.11 - Cellulitis of right external ear (4) Elevated blood pressure reading in office with white coat syndrome, without diagnosis of hypertension: Code(s): R03.0 - Elevated blood-pressure reading, without diagnosis of hypertension (5) Anxiety, generalized: Code(s): F41.1 - Generalized anxiety disorder Plan History - The patient is a 69-year-old female presenting with concerns of an insect bite on the right ear. - The patient reports waking up with a hot and scratchy sensation in the right ear. - She engaged in gardening activities prior to the onset of symptoms and suspects the involvement of a tick or spider due to previous episodes with similar triggers. - The patient did not observe any visible insect but noted some residue at the edge of her hair. 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 - The presence of swelling and redness on the ear was noted without any significant improvement. - Additionally, she experiences white coat syndrome which exacerbates her anxiety. - The patient reports recurring high blood pressure readings, with a current measurement of 180/84 mmHg, acknowledging anxiety as a major contributing factor. - She is experiencing anxiety exacerbated by an upcoming mammogram appointment which was delayed. Medical History: - White coat syndrome with associated anxiety. - Known history of elevated blood pressure. Due to anxiety Medications: - Lorazepam: Taken as needed to manage anxiety, although the supply is limited and often used sparingly. Problem List - Suspected insect bite on right ear with cellulitis - Elevated blood pressure - White coat syndrome with anxiety Patient Instructions - Take lorazepam as prescribed to help manage anxiety and reduce blood pressure. - Take the prescribed antibiotic and Medrol Dosepak to address the ear inflammation and prevent infection. - Consider using elbo-akx-owiusax antihistamine like Benadryl . - Monitor blood pressure regularly and report any significant changes. - Refill and follow the prescription instructions as provided. Medications: New doxycycline hyclate 100 mg PO BID 10 caps 0RF 5 days prednisone 10 mg PO DAILY 3 tabs 0RF 3 days Refilled lorazepam (Ativan) 0.5 mg PO DAILY PRN 10 tabs 0RF anxiety Coding Level of Care Code Est Pt Level 4 (52403) Diagnoses Insect bite of right ear, initial encounter S00.461A; W57.XXXA Encounter type: initial encounter Swelling of right ear H93.8X1 Cellulitis of right ear H60.11 Elevated blood pressure reading in office with white coat syndrome, without diagnosis of hypertension R03.0 Anxiety, generalized F41.1
[2025-05-09 08:52] VITALS: BP 180/84; PULSE 74; TEMP 36.7; O2SAT 98; BMI 24.5
--- OUTSIDE RECORDS SUMMARY | 2025-05-09 08:57 | XMS_ITS | Patient Health Record ---
Author Organization [facility] Address [address] [place] [id number] Care Team Providers Care Inside Upholsterer Name Role Phone DOROTHY FORD Primary Care Provider Rowdy Dailey [phone] Allergies Allergen (clinical drug ingredient) Drug/Non Drug [...] Problem Status W/U Status Risk Notes Problem [id number] Encounter for screening for malignant neoplasm of colon (Z12.11) Active confirmed Problem 392027910 Preprocedural examination (Z01.818) Active confirmed Problem 93897362 Rectal bleed (K62.5) Active confirmed Problem 891283209 Abdominal pain, generalized (R10.84) Active confirmed Problem 95187971 Diarrhea of presumed infectious origin (R19.7) Active confirmed Problem 233477426041802 History of Clostridioides difficile infection (Z86.19) Active confirmed Problem [id number] C. 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
== END 2025-05-09 09:55 | disposition home or self-care (01) ==
PROVIDERS: PCP Internal Medicine; Visit Provider Internal Medicine
DX: S00.461A Insect bite (nonvenomous) of right ear, initial encounter (principal); W57.XXXA Bitten or stung by nonvenomous insect and other nonvenomous arthropods, initial encounter; H93.8X1 Other specified disorders of right ear; H60.11 Cellulitis of right external ear; R03.0 Elevated blood-pressure reading, without diagnosis of hypertension; F41.1 Generalized anxiety disorder

== ENCOUNTER → 2025-05-09 08:41 | Outpatient (BNVA) | payer MEDICARE, SELFPAY | PROVIDERS: PCP Internal Medicine; Visit Provider Internal Medicine | DX: S00.461A Insect bite (nonvenomous) of right ear, initial encounter (principal); H93.8X1 Other specified disorders of right ear; H60.11 Cellulitis of right external ear; R03.0 Elevated blood-pressure reading, without diagnosis of hypertension; F41.1 Generalized anxiety disorder; W57.XXXA Bitten or stung by nonvenomous insect and other nonvenomous arthropods, initial encounter; Y93.9 Activity, unspecified; Y92.9 Unspecified place or not applicable; Y99.9 Unspecified external cause status | CPT/HCPCS: 99212 ==

== ENCOUNTER 2025-05-16 11:11 | Outpatient (REF) | payer MEDICARE, SELFPAY ==
--- NOTE | ~2025-05-16 | MM_ITS ---
EXAMINATION: MM DIAGNOSTIC DIGITAL BREAST TOMOSYNTHESIS, LEFT Left Limited ultrasound. CLINICAL INFORMATION: [Call back from screening for focal asymmetry in the upper outer left breast posterior depth. COMPARISON: Mammography: Prior imaging on PACS. TECHNIQUE: Digital breast tomosynthesis is performed in both the craniocaudal and mediolateral oblique views along with computer-aided detection (CAD). Synthesized 2D images are generated from the tomosynthesis. FINDINGS: The breasts are heterogeneously dense, which may obscure small masses (ACR BI-RADS breast composition Category c). Focal asymmetry in the upper outer breast does not persist on additional imaging projections and likely represented overlapping breast tissue. Appearance is stable dating back to 2019. There are no significant masses, abnormal calcifications, or other abnormalities. Targeted color Doppler ultrasound scanning in the upper outer quadrant of the left breast demonstrates normal fibronodular breast tissue. There is no sonographic abnormal finding. MM/MM tomosynthesis added views L IMPRESSION: No mammographic evidence of malignancy. ASSESSMENT: BI-RADS BI-RADS 1 - Negative RECOMMENDATION: 1 year F/U Results were provided to the patient at time of visit by the technologist. This patient's information was entered into a reminder system with a target due date for their next mammogram. Electronically signed by: Carol Ackerman DO 05/16/2025 12:36 PM EDT
--- OUTSIDE RECORDS SUMMARY | 2025-05-16 12:14 | XMS_ITS | Patient Health Record ---
Author Organization [facility] Address [address] [place] [id number] Care Team Providers Care [employer] Assistant Name Role Phone DOROTHY FORD Primary Care Provider Rowdy Dailey [phone] Allergies Allergen (clinical drug ingredient) Drug/Non Drug [...] Problem Status W/U Status Risk Notes Problem [id number] Encounter for screening for malignant neoplasm of colon (Z12.11) Active confirmed Problem 496717588 Preprocedural examination (Z01.818) Active confirmed Problem 51153063 Rectal bleed (K62.5) Active confirmed Problem 949241326 Abdominal pain, generalized (R10.84) Active confirmed Problem 25691220 Diarrhea of presumed infectious origin (R19.7) Active confirmed Problem 770728173632465 History of Clostridioides difficile infection (Z86.19) Active confirmed Problem 0000964713312 C. 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 Plan Of Treatment Pending Test Test Name Order Date CHEM 7 PROFILE 06/17/2023 LIVER PROFILE 06/17/2023 CBC w DIFF 06/17/2023 STOOL WBC 06/17/2023 STOOL WBC 08/04/2023 C DIFFICILE RFLX PCR 08/04/2023 C DIFFICILE RFLX PCR 06/17/2023 Future Test Test Name Order Date COLONOSCOPY 08/19/2017 Insurance Providers Payer Name Payer Address Payer Phone Subscriber Number Group Number Insured Name Patient Relationship to Insured Coverage Start Date Coverage End Date [facility] [address] [place] [address] [id number] MARIA FERNANDA ABREU Self - patient is the insured Medical (General) History Medical History History ICD Code Hypothyroidism Denies [place],DM,CVA,Lung disease,renal dise ase Negative screening colonosco py in June 2008--diverticulosis and internal hemorrhoids Surgical History Surgery Date(Month/Year) Uterine fibroid
== END 2025-05-16 11:12 | disposition home or self-care (01) ==
LOC: HO.MAMMO 11:11
PROVIDERS: PCP Internal Medicine; Visit Provider Internal Medicine
DX: N64.89 Other specified disorders of breast (principal)
CPT/HCPCS: 76642; 77061; 77065

== ENCOUNTER → 2025-05-16 12:00 | Outpatient (BNV) | payer MEDICARE, SELFPAY | PROVIDERS: PCP Internal Medicine; Visit Provider Internal Medicine | DX: R92.8 Other abnormal and inconclusive findings on diagnostic imaging of breast (principal) | CPT/HCPCS: 76642; 77065; G0279 ==

== ENCOUNTER 2025-07-25 09:19 | Outpatient (AMB) | payer MEDICARE, SELFPAY ==
--- NOTE | 2025-07-25 09:24 | MHC.PC.OV ---
Vital Signs 07/25/25 09:36 Height 5 ft 2.2 in Weight 133 lb 2 oz BMI 24.2 BP 186/78 H Blood Pressure Location Lt brachial Position Sitting Respiration 16 Pulse 78 Pulse Source Pulse Oximeter Temp 97.9 F Temp Source Temporal Artery Scan Pulse Oximetry (%) 100 Oxygen Delivery Method Room Air Intake Visit Reasons: 6 month f/u - see comments Radio Commentator Required: No Accompanied by: Self / Same As Patient Allergies iron Allergy (Unknown, Verified 07/25/25 15:52) vomiting penicillin V Allergy (Unknown, Verified 07/25/25 15:52) rash Penicillins (PCN) Allergy (Unknown, Verified 07/25/25 15:52) HIVES alendronate sodium (Fosamax) Adverse Reaction (Unknown, Verified 07/25/25 15:52) body pains Medication List - Last Reconciled 07/25/25 by Luiza Castillo PA-C cholecalciferol (vitamin D3) 50 mcg PO DAILY doxycycline hyclate 100 mg PO BID 5 days levothyroxine 75 mcg PO DAILY lisinopril 10 mg PO DAILY lorazepam 0.5 mg PO DAILY PRN prednisone 10 mg PO DAILY 3 days Tobacco use date assessed: 05/26/23 Dental Screening Dental Screen Date: 07/25/25 Did you have a dental visit in the last 12 months?: Yes Did you have a dental problem in the last 6 months where you did not have access to dental care?: No Was dental information given to patient?: Patient has dentist HPI 6 month f/u - see comments HPI Details The patient is a 69-year-old female presenting with elevated blood pressure readings. She reports that her blood pressure readings are significantly higher during clinic visits compared to home measurements, with recent readings as high as 200/80 mmHg. The patient has not been monitoring her blood pressure regularly at home and acknowledges significant life stressors contributing to her condition. The patient has a history of hyperlipidemia, with previous cholesterol levels noted to be high. Her LDL cholesterol was recorded at 142 mg/dL, which is above the desired range of 70-100 mg/dL. She has been advised to consider dietary changes and possibly starting on a statin if levels do not improve by the next evaluation. The patient also experiences anxiety, which she attributes to ongoing family issues and stressors. She has been using lorazepam to manage her anxiety symptoms, particularly during periods of heightened stress. Social History - Family Status: The patient is experiencing significant family stress, including issues with her and daughter. 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 - Nutrition: The patient has started a gluten-free diet, which has improved her gastrointestinal symptoms. [facility] Medical History (Updated 07/25/25 @ 16:27 by Luiza Castillo PA-C) Hyperlipidemia Hypertension Vitamin D deficiency Hx of screening mammography White coat syndrome with high blood pressure without hypertension Normal colonoscopy (~02/07/18) Normal Pap smear Annual physical exam Leukopenia Osteoporosis Hypercholesterolemia Hypothyroidism Anxiety Hyperkalemia Surgical History H/O colonoscopy Family History Father Afib Liver cancer Mother CAD (coronary artery disease) HTN (hypertension) Skin cancer Maternal Grandfather Cancer of spine Maternal Grandmother No problems noted. Paternal Grandfather Lung cancer Paternal Grandmother History of heart attack Brother No problems noted. Daughter No problems noted. Daughter No problems noted. Social History Household Members: Spouse Housing: House Alcohol intake: current Alcohol intake frequency: a few times a month Alcohol type: wine Patient Tobacco Use Status: Never used Tobacco e-Cigarette/Vaping Use: Never Used service: No Current occupational status: retired Cognitive needs: No Hearing needs: No Vision needs: Yes (rx contacts, cataracts) Questionnaire PHQ-9 Over the last 2 weeks, how often have you been bothered by any of the following problems? 1. Little interest or pleasure in doing things: not at all 2. Feeling down, depressed, or hopeless: not at all 3. Trouble falling or staying asleep, or sleeping too much: not at all 4. Feeling tired or having little energy: not at all 5. Poor appetite or overeating: not at all 6. Feeling bad about yourself - or that you are a failure or have let yourself or your family down: not at all 7. Trouble concentrating on things, such as reading the newspaper or watching television: not at all 8. Moving or speaking so slowly that other people could have noticed. Or the opposite - being so fidgety or restless that you have been moving around a lot more than usual: not at all 9. Thoughts that you would be better off or of hurting yourself in some way: not at all Total score: 0 Depression Screening Interpretation: Negative Depression Screening Done: Yes Source: Developed by Drs. Rowdy Kumari, Lilliam Braxton, Kurt Guevara and colleagues, with an educational piedad from [employer]. Thrive Questionnaire Date Thrive assessed: 07/25/25 I am a: Patient What is your living situation today?: I have a steady place to live Within the past 12 months, did the food you bought not last and you didn't have the money to get more?: Never true Within the past 12 months, did you worry whether your food would run out before you got money to buy more?: Never true Do you have trouble paying for medicines?: No Do you have trouble getting transportation to medical appointments?: No Do you have trouble paying your heating and electricity bill?: No Do you have trouble taking care of your child, family member or friend?: No Do you have trouble with day-to-day activities such as bathing, preparing meals, shopping, managing finances, etc.?: No Are you currently unemployed and looking for a job?: No Are you interested in more education?: No Please select the resources that you would like help with: None THRIVE Score: 0 AUDIT C Alcohol Use Questionnaire (AUDIT-C) 1. How often do you have a drink containing alcohol?: Monthly or less 2. How many drinks containing alcohol do you have on a typical day when you are drinking?: 1 or 2 3. How often do you have six or more drinks on one occasion?: Never Total Score: 1 AUGUSTA-7 AMB Questionnaire AUGUSTA-7 Date AUGUSTA - 7 assessed: 07/25/25 Feeling nervous, anxious, or on edge: 0 = Not at all Not being able to stop or control worryin = Not at all Worrying too much about different things: 0 = Not at all Trouble relaxin = Not at all Being so restless that it is hard to sit still: 0 = Not at all Becoming easily annoyed or irritable: 0 = Not at all Feeling afraid as if something awful might happen: 0 = Not at all Total AUGUSTA-7 score (0-4 normal; 5-9 mild; 10-14 moderate; 15-21 severe): 0 Source: Developed by Drs. Rowdy Kumari, Lilliam Braxton, Kurt Guevara and colleagues, with an educational piedad from [employer] [facility] [employer]. Review of Systems Const Details: - Cardiovascular: Reports elevated blood pressure readings during clinic visits. Denies chest pain or palpitations. - Psychological: Reports anxiety related to family stressors. Denies depression. All systems reviewed & are unremarkable except as noted in HPI and below Physical exam (Primary Care) Vital Signs: Last Vital Signs Temp 97.9 F 07/25/25 09:36 Pulse 78 07/25/25 09:36 Resp 16 07/25/25 09:36 BP 186/78 H 07/25/25 09:36 Pulse Ox 100 07/25/25 09:36 Oxygen Delivery Method Room Air 07/25/25 09:36 Care Plan Goal for BP management: <140/90 patient will be started on lisinopril 10 mg daily and return in 1 month for blood pressure check BMI result Body Mass Index 24.2 Normal BMI Tobacco/Smoking Status: Tobacco use Status Tobacco use date assessed 05/26/23 07/25/25 09:26 Patient Tobacco Use Status Never used Tobacco 07/25/25 09:26 e-Cigarette/Vaping Use Never Used 07/25/25 09:26 PHQ-9: PHQ-9 Score PHQ-9: Total score 0 07/25/25 14:03 Depression Screening Interpretation: Negative Thrive Assessment: Date of Thrive Assessment Date Thrive assessed 07/25/25 07/25/25 09:26 Const Other: Appearance: Alert. Oriented X3. No acute distress. Head: Normal external exam. Normocephalic. Atraumatic. Eyes: Pupils are equal, round, and reactive to light. Extraocular movements intact. Conjunctiva and sclera normal. Eyelids normal. Ears: External auditory canal normal. Tympanic membranes normal. Throat: Pharynx normal. Uvula midline. Moist mucous membranes. Neck: Normal inspection. Neck supple. Full range of motion. No adenopathy. Thyroid Normal. No meningeal signs. No neck mass noted. Cardiovascular: Blood pressure is high, recorded at 186/something. Normal heart rate and rhythm. Heart sound normal. No murmurs noted. Pulses normal throughout. Respiratory: No respiratory distress. Painless inspiration. Breath sounds normal. No wheezes/rales/rhonchi noted. Chest nontender. No accessory muscle usage noted or decreased air movement noted. Abdomen: Soft and nontender. Bowel sounds normal in all 4 quadrants. No distention noted. No organomegaly noted. No visible injury noted. Back: No costovertebral angle tenderness. Full range of motion noted. Skin: Skin warm and dry. Normal skin color. Normal skin turgor. No rashes/lesions/lacerations noted. Extremities: No lower extremity edema. Extremities exhibit normal range of motion. Extremities nontender. Neuro: Oriented X 3. No motor deficit. No sensory deficit. Reflexes normal. Results Reviewed Results Reviewed: - Labs: LDL cholesterol recorded at 142 mg/dL, above the desired range of 70-100 mg/dL. Coding Level of Care Code Est Pt Level 4 (27856) Complex EM visit Add On G2211 Diagnoses Hypertension I10 Hyperlipidemia E78.5 Anxiety, generalized F41.1 Time Spent (min) 50 Assessment & Plan Assessment & Plan (1) Hypertension: Code(s): I10 - Essential (primary) hypertension Category: Medical Plan: The patient will start on lisinopril 10 mg daily to manage her elevated blood pressure, with a follow-up in 30 days to assess efficacy and tolerance. She is advised to monitor her blood pressure at home at least five times a week, two hours after taking the medication, and to avoid caffeine during these measurements. (2) Hyperlipidemia: Code(s): E78.5 - Hyperlipidemia, unspecified Category: Medical Plan: The patient is advised to continue dietary modifications and consider starting a statin if cholesterol levels remain elevated at the next evaluation in November. She is also encouraged to explore Zetia, Alton-3 fatty acids as a supplement to help manage her cholesterol levels. (3) Anxiety, generalized: Code(s): F41.1 - Generalized anxiety disorder Category: Medical Plan: The patient is encouraged to seek therapy or counseling to help manage her anxiety related to family stressors. She continues to use lorazepam as needed for acute anxiety episodes. Plan Plan Patient was informed and verbally consented to the use of an ambient scribe for clinic note documentation during this visit. 1. Essential Hypertension The patient will start on lisinopril 10 mg daily to manage her elevated blood pressure, with a follow-up in 30 days to assess efficacy and tolerance. She is advised to monitor her blood pressure at home at least five times a week, two hours after taking the medication, and to avoid caffeine during these measurements. 2. Hyperlipidemia The patient is advised to continue dietary modifications and consider starting a statin if cholesterol levels remain elevated at the next evaluation in November. She is also encouraged to explore Alton-3 fatty acids as a supplement to help manage her cholesterol levels. 3. Anxiety The patient is encouraged to seek therapy or counseling to help manage her anxiety related to family stressors. She continues to use lorazepam as needed for acute anxiety episodes. During the visit, I discussed with the patient the importance of managing her blood pressure to reduce the risk of cardiovascular events. We agreed to start lisinopril at a low dose and monitor her response over the next month. I also emphasized the need for regular blood pressure monitoring at home and dietary changes to address her hyperlipidemia. We discussed the potential benefits of Alton-3 fatty acids and the possibility of starting a statin if her cholesterol levels do not improve. Additionally, I encouraged her to seek counseling to help manage her anxiety related to family stressors. Medications: New lisinopril 10 mg PO DAILY 30 tabs 0RF Patient Instructions: - Take lisinopril 10 mg daily as prescribed. - Monitor blood pressure at home five times a week, two hours after taking medication. - Avoid caffeine when measuring blood pressure. - Consider dietary changes to manage cholesterol levels. - Explore Alton-3 fatty acids as a supplement. - Seek therapy or counseling for anxiety management.
[2025-07-25 09:36] VITALS: BP 186/78; PULSE 78; RESP 16; TEMP 36.6; O2SAT 100; BMI 24.2
== END 2025-07-25 10:09 | disposition home or self-care (01) ==
LOC: HO.HMCSH 09:19
PROVIDERS: PCP Internal Medicine; Visit Provider Physician Assistant Medical
DX: I10 Essential (primary) hypertension (principal); E78.5 Hyperlipidemia, unspecified; F41.1 Generalized anxiety disorder

== ENCOUNTER → 2025-07-25 09:19 | Outpatient (BNVA) | payer MEDICARE, SELFPAY | PROVIDERS: PCP Internal Medicine; Visit Provider Physician Assistant Medical | DX: I10 Essential (primary) hypertension (principal); E78.5 Hyperlipidemia, unspecified; F41.1 Generalized anxiety disorder | CPT/HCPCS: 96127; 99212 ==

== ENCOUNTER 2025-08-27 08:57 | Outpatient (AMB) | payer MEDICARE, SELFPAY ==
--- NOTE | 2025-08-27 08:59 | MHC.PC.OV ---
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: No Allergies iron Allergy (Unknown, Verified 08/27/25 09:28) vomiting penicillin V Allergy (Unknown, Verified 08/27/25 09:28) rash Penicillins (PCN) Allergy (Unknown, Verified 08/27/25 09:28) HIVES alendronate sodium (Fosamax) Adverse Reaction (Unknown, Verified 08/27/25 09:28) body pains Medication List - Last Reconciled 08/27/25 by Luiza Castillo PA-C cholecalciferol (vitamin D3) 50 mcg PO DAILY levothyroxine 75 mcg PO DAILY lisinopril 10 mg PO DAILY lorazepam 0.5 mg PO DAILY PRN Tobacco use date assessed: 05/26/23 Dental Screening Dental Screen Date: 07/25/25 HPI 1 month follow up HPI Details The patient is a 69-year-old female presenting for a blood pressure check. She recently started taking antihypertensive medication for high blood pressure, with previous readings as high as 186/78 mmHg. Initially, she experienced significant fatigue, feeling sleepy all day, and some shortness of breath, but these side effects are now improving. She denies any chest pain or shortness of breath while walking or lying flat. The patient also reports issues with sleep and has been taking lorazepam 0.5 mg as needed. She states she is on thyroid medication and reports following a gluten-free and low-salt diet. She recently started incorporating adames soup into her diet to help manage her cholesterol. Pending lab work has been ordered to check for causes of her fatigue and for general health screening, including a CBC, CMP, hemoglobin A1c, vitamin B12, vitamin D, and magnesium. Social History - Diet: The patient follows a low-salt and gluten-free diet. - She recently started consuming adames soup to naturally lower her cholesterol. [facility] Medical History (Updated 08/27/25 @ 09:37 by Luiza Castillo PA-C) Healthcare maintenance Insomnia Hyperlipidemia Hypertension Vitamin D deficiency Hx of screening mammography White coat syndrome with high blood pressure without hypertension Normal colonoscopy (~02/07/18) Normal Pap smear Annual physical exam Leukopenia Osteoporosis Hypercholesterolemia Hypothyroidism Anxiety Hyperkalemia Surgical History H/O colonoscopy Family History Father Afib Liver cancer Mother CAD (coronary artery disease) HTN (hypertension) Skin cancer Maternal Grandfather Cancer of spine Maternal Grandmother No problems noted. Paternal Grandfather Lung cancer Paternal Grandmother History of heart attack Brother No problems noted. Daughter No problems noted. Daughter No problems noted. Social History Household Members: Spouse Housing: House Alcohol intake: current Alcohol intake frequency: a few times a month Alcohol type: wine Patient Tobacco Use Status: Never used Tobacco e-Cigarette/Vaping Use: Never Used service: No Current occupational status: retired Cognitive needs: No Hearing needs: No Vision needs: Yes (rx contacts, cataracts) Questionnaire PHQ-9 Over the last 2 weeks, how often have you been bothered by any of the following problems? 1. Little interest or pleasure in doing things: not at all 2. Feeling down, depressed, or hopeless: not at all 3. Trouble falling or staying asleep, or sleeping too much: not at all 4. Feeling tired or having little energy: not at all 5. Poor appetite or overeating: not at all 6. Feeling bad about yourself - or that you are a failure or have let yourself or your family down: not at all 7. Trouble concentrating on things, such as reading the newspaper or watching television: not at all 8. Moving or speaking so slowly that other people could have noticed. Or the opposite - being so fidgety or restless that you have been moving around a lot more than usual: not at all 9. Thoughts that you would be better off or of hurting yourself in some way: not at all Total score: 0 Depression Screening Interpretation: Negative Depression Screening Done: Yes Source: Developed by Drs. Rowdy Kumari, Lilliam Braxton, Kurt Guevara and colleagues, with an educational piedad from [employer]. Thrive Questionnaire Date Thrive assessed: 07/25/25 I am a: Patient What is your living situation today?: I have a steady place to live Within the past 12 months, did the food you bought not last and you didn't have the money to get more?: Never true Within the past 12 months, did you worry whether your food would run out before you got money to buy more?: Never true Do you have trouble paying for medicines?: No Do you have trouble getting transportation to medical appointments?: No Do you have trouble paying your heating and electricity bill?: No Do you have trouble taking care of your child, family member or friend?: No Do you have trouble with day-to-day activities such as bathing, preparing meals, shopping, managing finances, etc.?: No Are you currently unemployed and looking for a job?: No Are you interested in more education?: No Please select the resources that you would like help with: None THRIVE Score: 0 AUDIT C Alcohol Use Questionnaire (AUDIT-C) 1. How often do you have a drink containing alcohol?: Monthly or less 2. How many drinks containing alcohol do you have on a typical day when you are drinking?: 1 or 2 3. How often do you have six or more drinks on one occasion?: Never Total Score: 1 Score Reviewed/Action Taken: No AUGUSTA-7 AMB Questionnaire AUGUSTA-7 Date AUGUSTA - 7 assessed: 07/25/25 Source: Developed by Drs. Rowdy Kumari, Lilliam Braxton, Kurt Guevara and colleagues, with an educational piedad from [employer]. Review of Systems Const Details: - Constitutional: Reports significant fatigue that is now improving. - Cardiovascular: Denies chest pain. - Respiratory: Denies current dyspnea when walking or lying flat, but reports initial dyspnea after starting a new medication. - Neurological: Reports sleep disturbances. All systems reviewed & are unremarkable except as noted in HPI and below Physical exam (Primary Care) Vital Signs: Last Vital Signs Temp 97.4 F 08/27/25 09:07 Pulse 80 08/27/25 09:07 BP 136/78 08/27/25 09:07 Pulse Ox 98 08/27/25 09:07 Care Plan Goal for BP management: <140/90 at Goal BMI result Body Mass Index 24.0 Normal BMI Tobacco/Smoking Status: Tobacco use Status Tobacco use date assessed 05/26/23 08/27/25 09:03 Patient Tobacco Use Status Never used Tobacco 08/27/25 09:03 e-Cigarette/Vaping Use Never Used 08/27/25 09:03 PHQ-9: PHQ-9 Score PHQ-9: Total score 0 08/27/25 09:15 Depression Screening Interpretation: Negative Thrive Assessment: Date of Thrive Assessment Date Thrive assessed 07/25/25 08/27/25 09:03 Const Other: Appearance: Alert. Oriented X3. No acute distress. Head: Normal external exam. Normocephalic. Atraumatic. Eyes: Pupils are equal, round, and reactive to light. Extraocular movements intact. Conjunctiva and sclera normal. Eyelids normal. Throat: Pharynx normal. Uvula midline. Moist mucous membranes. Neck: Normal inspection. Neck supple. Full range of motion. Cardiovascular: Normal heart rate and rhythm. Respiratory: No respiratory distress. Painless inspiration. Back: Full range of motion noted. Skin: Skin warm and dry. Normal skin color. Extremities: Extremities exhibit normal range of motion. Coding Level of Care Code Est Pt Level 4 (85758) Complex EM visit Add On G2211 Diagnoses Hypertension I10 Insomnia G47.00 Anxiety, generalized F41.1 Healthcare maintenance Z00.00 Assessment & Plan Assessment & Plan (1) Hypertension: Code(s): I10 - Essential (primary) hypertension Category: Medical Plan: The patient's blood pressure is well-controlled, with today's reading at 136/78 mmHg, a significant improvement from previous readings as high as 186/78 mmHg. She will continue her current antihypertensive medication, lisinopril, and is encouraged to maintain her low-salt diet. She should continue monitoring her blood pressure at home. (2) Insomnia: Code(s): G47.00 - Insomnia, unspecified Category: Medical Plan: The patient uses lorazepam 0.5 mg for sleep. To address the inconvenience of a 10-pill supply, a new prescription for 30 tablets of lorazepam 0.5 mg will be sent to the pharmacy for as-needed use. (3) Anxiety, generalized: Code(s): F41.1 - Generalized anxiety disorder Category: Medical Plan: The patient uses lorazepam 0.5 mg for sleep. To address the inconvenience of a 10-pill supply, a new prescription for 30 tablets of lorazepam 0.5 mg will be sent to the pharmacy for as-needed use. (4) Healthcare maintenance: Code(s): Z00.00 - Encounter for general adult medical examination without abnormal findings Category: Medical Plan: An order for fasting blood work is in place, which includes a CBC, CMP, hemoglobin A1c, thyroid levels, vitamin B1, B12, D, and magnesium, as well as a urinalysis. The patient is advised to complete these labs. A follow-up visit for a physical exam is recommended in 4 to 5 months, around December or January. Plan Plan Patient was informed and verbally consented to the use of an ambient scribe for clinic note documentation during this visit. 1. Essential Hypertension The patient's blood pressure is well-controlled, with today's reading at 136/78 mmHg, a significant improvement from previous readings as high as 186/78 mmHg. She will continue her current antihypertensive medication, lisinopril, and is encouraged to maintain her low-salt diet. She should continue monitoring her blood pressure at home. 2. Insomnia The patient uses lorazepam 0.5 mg for sleep. To address the inconvenience of a 10-pill supply, a new prescription for 30 tablets of lorazepam 0.5 mg will be sent to the pharmacy for as-needed use. 3. Health Maintenance An order for fasting blood work is in place, which includes a CBC, CMP, hemoglobin A1c, thyroid levels, vitamin B1, B12, D, and magnesium, as well as a urinalysis. The patient is advised to complete these labs. A follow-up visit for a physical exam is recommended in 4 to 5 months, around December or January. I discussed the patient's excellent blood pressure control on her new medication, with her reading today at 136/78 mmHg. I acknowledged the initial side effects of fatigue and shortness of breath, which she reports are improving. I encouraged her to continue her dietary efforts, including a low-salt intake, to support her blood pressure management. We addressed her use of lorazepam for sleep, and I agreed to increase her prescription to 30 tablets per month for her convenience. I reminded her about the pending fasting lab work, which is important for evaluating her fatigue and overall health. We scheduled a follow-up appointment for a physical in 4-5 months to review her progress and lab results. Orders: Orders UA CC w/rflx Micro + Cult Today Z00.00 - Encounter for general adult medical examination without abnormal findings Medications: Changed From lorazepam 1 mg (2 x 0.5 mg) PO DAILY PRN 10 tabs 0RF anxiety To lorazepam 0.5 mg PO DAILY PRN 30 tabs 0RF anxiety Patient Instructions: - Continue to take your blood pressure medication as prescribed. - Continue monitoring your blood pressure at home. - Maintain a good diet with less salt to help keep your blood pressure down. - A new prescription for 30 tablets of Lorazepam 0.5 mg will be sent to your pharmacy, which you can take as needed for sleep. - Please go to the lab to have your blood work done. - You must be fasting (nothing to eat) before the blood test. - Schedule a follow-up appointment for a physical in 4 to 5 months, around December or January.
[2025-08-27 09:07] VITALS: BP 136/78; PULSE 80; TEMP 36.3; O2SAT 98; BMI 24.0
== END 2025-08-27 09:30 | disposition home or self-care (01) ==
LOC: HO.HMCSH 08:57
PROVIDERS: PCP Physician Assistant Medical; Visit Provider Physician Assistant Medical
DX: I10 Essential (primary) hypertension (principal); G47.00 Insomnia, unspecified; F41.1 Generalized anxiety disorder; Z00.00 Encounter for general adult medical examination without abnormal findings

== ENCOUNTER → 2025-08-27 08:57 | Outpatient (BNVA) | payer MEDICARE, SELFPAY | PROVIDERS: PCP Physician Assistant Medical; Visit Provider Physician Assistant Medical | DX: Z00.00 Encounter for general adult medical examination without abnormal findings (principal); I10 Essential (primary) hypertension; G47.00 Insomnia, unspecified; F41.1 Generalized anxiety disorder | CPT/HCPCS: 96127; 99212 ==

== ENCOUNTER 2025-09-05 07:40 | Outpatient (REF) | payer MEDICARE, SELFPAY ==
[2025-09-05 10:24] LABS: MANUAL DIFF FLAG NO
[2025-09-05 10:27] LABS: Hematocrit 39.2 % (37.0-47.0); Hemoglobin 13.0 g/dl (12.0-16.0); Imm Gran Abs Auto 0.00 X10*3/uL (0.00-0.03); Imm Gran Pct Auto 0.0 % (0.0-0.4); Lymphocytes Absolute Auto 1.3 X10*3/uL (1.2-4.9); Mean Corpuscular HGB Conc 33.2 g/dl (31.0-35.0); Mean Corpuscular Hemoglobin 29.4 pg (27.0-33.0); Mean Corpuscular Volume 88.7 fL (80.0-98.0); NRBC Abs Auto 0.000 X10*3/uL (0.0-0.012); NRBC Pct Auto 0.0 /100WBC (0.0-0.2); Platelet Count 333 X10*3/uL (160-400); Red Blood Count 4.42 X10*6/uL (4.20-5.50); White Blood Count 3.6 X10*3/uL (4.8-10.8)
[2025-09-05 10:43] LABS: Alanine Aminotransferase 17 U/L (0-31); Albumin Level 4.4 g/dL (3.5-5.0); Alkaline Phosphatase 80 U/L (39-117); Anion Gap 13 (12-20); Aspartate Amino Transferase 27 U/L (5-31); Blood Urea Nitrogen 8 mg/dL (9-16); Calcium 9.6 mg/dL (8.4-10.2); Carbon Dioxide 25 mmol/L (22-29); Chloride 107 mmol/L (96-108); Cholesterol 224 mg/dL (<200); Estimated Glomerular Filt Rate > 60; HDL Cholesterol 63 mg/dL (>40); Magnesium 2.1 mg/dL (1.6-2.6); Potassium 4.9 mmol/L (3.3-5.1); Sodium 140 mmol/L (135-145); Total Protein 7.3 g/dL (6.5-8.0); Triglycerides 98 mg/dL (<150)
[2025-09-05 11:12] LABS: Folate 5.5 ng/mL (> or = 4.0); Vitamin B12 394 pg/mL (200-900)
[2025-09-05 13:10] LABS: Appearance Urine Clear; Glucose Urine UA Negative (Negative); PH 6.0 (5.0-9.0); Specific Gravity - Urine <= 1.005 (1.005-1.025)
--- OUTSIDE RECORDS SUMMARY | 2025-09-05 15:07 | XMS_ITS | Patient Health Record ---
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 Name Role Phone DOROTHY FORD Primary Care Provider Rowdy Dailey [phone] Allergies Allergen (clinical drug ingredient) Drug/Non Drug Allergy documented on EMR Reaction Allergy Type Onset Date Status ferrous sulfate Iron Unknown Drug Allergy A ctive Penicillin Unknown Drug Allergy Active Reason For Referral No Information Medications Medication SIG (Take, Route, Frequency, Duration) Notes Start Date End Date Status Synthroid 75 MCG Tablet 1 tablet on an e mpty stomach in the morning Orally Once a day Active Vancomycin HCl 250 MG Capsule 1 Orally One 4 times a day for 2 weeks, then One twice a day for 2 weeks, then One daily for two weeks, then One every other day for two weeks, and then One every third day for 2 weeks; Duration: 70 days 08/05/2023 Active Vancomycin HCl 125 MG Capsule 1 capsule Orally every 6 hrs; Duration: 10 days 06/19/2023 Active Social History Tobacco Use: Social History Observation Description Date Details (start date - stop date) Never Smoker NA - NA Social History Drugs/Alcohol: Social Info Question Answer Notes Alcohol Screen Did you have a drink containing alcohol in the past year? Yes How often did you have a drink containing alcohol in the past year? Monthly or less (1 point) How many drinks did you have on a typical day when you were drinking in the past year? 1 or 2 drinks (0 point) Points 1 Interpretation Negative Tobacco Use: Social Info Question Answer Notes Tobacco Use/Smoking Patient is a nonsmoker Additional Details Category Social Info Options Details Miscellaneous: Marital status: Occupation: Retired Section Notes: Nonsmoker; no sig alcohol Problems Problem Type SNOMED Code ICD Code Onset Dates Problem Status W/U Status Risk Notes Problem Screening for malignant neoplasm of colon (736673618) Encounter for screening for malignant neoplasm of colon (Z12.11) Active confirmed Problem Preprocedural examination (733446888995768) Preprocedural examination (Z01.818) Active confirmed Problem Hemorrhage of rectum and anus (941233348) Rectal bleed (K62.5) Active confirmed Problem Generalized abdominal pain (195215981) Abdominal pain, generalized (R10.84) Active confirmed Problem Diarrhea of presumed infectious origin (23757459) Diarrhea of presumed infectious origin (R19.7) Active confirmed Problem History of infectious disease (423765458) History of Clostridioides difficile infection (Z86.19) Active confirmed Problem Clostridium difficile diarrhea (disorder) (4227562929604) C. 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
== END 2025-09-05 07:41 | disposition home or self-care (01) ==
LOC: HO.HMGCLDS 07:40
PROVIDERS: PCP Physician Assistant Medical; Visit Provider Physician Assistant Medical
DX: Z00.00 Encounter for general adult medical examination without abnormal findings (principal); Z13.29 Encounter for screening for other suspected endocrine disorder; Z13.1 Encounter for screening for diabetes mellitus; Z13.21 Encounter for screening for nutritional disorder; Z13.6 Encounter for screening for cardiovascular disorders
CPT/HCPCS: 36415; 80053; 80061; 80076; 81003; 82248; 82306; 82607; 82746; 83036; 83735; 84425; 84443; 85025; 86140